=== PATIENT | female | born 1950 | race Caucasian/White ===

== ENCOUNTER → 2016-09-03 | Outpatient (CLI) | payer MEDICARE ==
[~2016-09-03] MED LIST: /ADVA50050 INH; /ALBU4TAB INH; /IPRA3SP INH; ATOR1TAB21 PO; AUGM875T27 PO; BREO1INH INH; CELE40TA PO; CIPR500T89 PO; CITA20TA2 PO; CLAR500T PO; COLA100C PO; COZA100T2 PO; DORZ2SOL5 OU; DOXY150C PO; FLAG500T PO; FURO20TA2 PO; JANU100T PO; LATA0.00 OU; LATA5OPD OD; LEVA500T PO; LEVO137T PO; LEVO500T PO; LOSA100T36 PO; METF1000 PO; NYAM10003 TOP; NYST1000 SS; NYST50SS PO; PARO40TA PO; PERCOCET PO; PRAV80TA2 PO; PRED10TA PO; PRED1TAB32 PO; PRED5SOL2 PO; PRED5TA PO; SYNT137T7 PO; SYNT175T2 PO; TUMS500C PO; TYLE650T30 PO; VALS1TAB46 PO; XALA0.002 OU; ZOFR4TAB3 PO; [UNRECOGNIZED DRUG - CODE]
[2016-09-03 08:52] LABS: CREATININE FOR GFR 1.08 MG/DL (0.55-1.02); GLOMERULAR FILTRATION RATE 54.5 (>45)
== END ==
LOC: M LAB 08:09
PROVIDERS: ATTEND Internal Medicine Pulmonary Disease
DX: R91.8 Other nonspecific abnormal finding of lung field (principal)

== ENCOUNTER → 2016-09-12 | Outpatient (CLI) | payer MEDICARE ==
[~2016-09-12] MED LIST changes: +ISOVUE-370 76% 100ML VIAL (Q9967) As Ordered ONE
--- NOTE | 2016-09-12 17:02 | REP ---
Clinical: History of cryptogenic organizing pneumonia for follow up. Technique: Axial contrast enhanced images from the thoracic inlet to the upper abdomen using 100 ml Isovue 370 intravenous contrast material with coronal and sagittal re-formations. Comparison: 05/10/2016. Findings: Biapical (left greater than right) and scattered basilar scarring is again appreciated along with mild chronic bronchiectasis. Previously noted multi focal areas of nodular consolidation with surrounding ground-glass opacities and small left pleural effusion have near completely resolved with only minimal small scattered nodular densities appreciated predominantly noted within the left lower lobe region. All remaining nodules are decreased in size when compared to prior examination and there is no evidence for new, acute process. No significant adenopathy is appreciated. Heart/pericardium and thoracic aorta are normal. Surrounding musculoskeletal structures are intact. Limited evaluation of the upper abdomen demonstrates normal bilateral adrenal glands. Impression: Resolving multifocal pneumonia compatible with history of cryptogenic organizing pneumonia. Mild scattered residual changes as described above and no evidence for new, acute process. Continued follow-up at 3-6 months may be warranted. Signed by Dennis Biggs MD 09/12/2016 04:53 P
== END ==
LOC: M RAD 16:00
PROVIDERS: ATTEND Internal Medicine Pulmonary Disease
DX: J84.116 Cryptogenic organizing pneumonia (principal)
CPT/HCPCS: 71260; Q9967

== ENCOUNTER → 2016-10-31 | Outpatient (REF) | payer MEDICARE ==
[~2016-10-31] MED LIST changes: -ISOVUE-370 76% 100ML VIAL (Q9967) As Ordered ONE
== END ==
LOC: M LAB REF 14:40
PROVIDERS: ATTEND Internal Medicine
DX: R07.9 Chest pain, unspecified (principal)

== ENCOUNTER → 2017-01-07 | Outpatient (REF) | payer MEDICARE ==
[~2017-01-07] MED LIST changes: -COLA100C PO; +COLA100C3 PO; -PARO40TA PO; +PARO40TA2 PO
== END ==
LOC: M LAB REF 16:21
PROVIDERS: ATTEND Internal Medicine
DX: R07.9 Chest pain, unspecified (principal)

== ENCOUNTER → 2017-02-03 | Outpatient (REF) | payer MEDICARE | LOC: M LAB REF 16:55 | PROVIDERS: ATTEND Internal Medicine | DX: R10.9 Unspecified abdominal pain (principal); R30.0 Dysuria ==

== ENCOUNTER → 2017-09-19 | Outpatient (CLI) | payer MEDICARE ==
[2017-09-19 09:00] LABS: CREATININE FOR GFR 0.99 MG/DL (0.55-1.02); GLOMERULAR FILTRATION RATE > 60.0 (>45)
[2017-09-19 09:00] LABS: BLOOD UREA NITROGEN 21 MG/DL (7-18)
== END ==
LOC: M LAB 07:51
DX: J84.116 Cryptogenic organizing pneumonia (principal)
CPT/HCPCS: 82565

== ENCOUNTER → 2017-09-22 | Outpatient (CLI) | payer MEDICARE ==
[~2017-09-22] MED LIST changes: -/ADVA50050 INH; -/ALBU4TAB INH; -/IPRA3SP INH; -ATOR1TAB21 PO; -AUGM875T27 PO; -BREO1INH INH; -CELE40TA PO; -CIPR500T89 PO; -CITA20TA2 PO; -CLAR500T PO; -COLA100C3 PO; -COZA100T2 PO; -DORZ2SOL5 OU; -DOXY150C PO; -FLAG500T PO; -FURO20TA2 PO; +ISOVUE-370 76% 100ML VIAL (Q9967) As Ordered; -JANU100T PO; -LATA0.00 OU; -LATA5OPD OD; -LEVA500T PO; -LEVO137T PO; -LEVO500T PO; -LOSA100T36 PO; -METF1000 PO; -NYAM10003 TOP; -NYST1000 SS; -NYST50SS PO; -PARO40TA2 PO; -PERCOCET PO; -PRAV80TA2 PO; -PRED10TA PO; -PRED1TAB32 PO; -PRED5SOL2 PO; -PRED5TA PO; -SYNT137T7 PO; -SYNT175T2 PO; -TUMS500C PO; -TYLE650T30 PO; -VALS1TAB46 PO; -XALA0.002 OU; -ZOFR4TAB3 PO; -[UNRECOGNIZED DRUG - CODE]
== END ==
LOC: M RAD 07:57
DX: J84.116 Cryptogenic organizing pneumonia (principal)
CPT/HCPCS: Q9967

== ENCOUNTER → 2018-04-21 | Outpatient (CLI) | payer MEDICARE | LOC: M CARPUL 07:30 | DX: J84.116 Cryptogenic organizing pneumonia (principal) | CPT/HCPCS: 94060 ==

== ENCOUNTER → 2018-07-10 | Outpatient (CLI) | payer MEDICARE | LOC: M RAD 11:01 | DX: R19.00 Intra-abdominal and pelvic swelling, mass and lump, unspecified site (principal) | CPT/HCPCS: 76856 ==

== ENCOUNTER → 2018-09-17 | Outpatient (CLI) | payer MEDICARE ==
[~2018-09-17] MED LIST changes: +/ADVA50050 INH; +/ALBU4TAB INH; +/IPRA3SP INH; +ATOR1TAB21 PO; +AUGM875T27 PO; +BREO1INH INH; +CELE40TA PO; +CIPR-249 PO; +CIPR500T89 PO; +CITA20TA2 PO; +CLAR500T PO; +COLA100C5 PO; +COZA100T2 PO; +DORZ2SOL5 OU; +DOXY150C PO; +FLAG500T PO; +FURO20TA2 PO; -ISOVUE-370 76% 100ML VIAL (Q9967) As Ordered; +JANU100T PO; +LATA0.00 OU; +LATA5OPD OD; +LEVA1TAB2 PO; +LEVO137T PO; +LEVO500T PO; +LOSA100T36 PO; +METF10004 PO; +NYAM10003 TOP; +NYST1000 SS; +NYST50SS PO; +PARO40TA2 PO; +PERCOCET PO; +PRAV80TA2 PO; +PRED10TA PO; +PRED1TAB32 PO; +PRED5SOL2 PO; +PRED5TA PO; +SYNT137T7 PO; +SYNT175T2 PO; +TUMS500C PO; +TYLE650T30 PO; +VALS1TAB46 PO; +XALA0.007 OU; +ZOFR4TAB14 PO; +[UNRECOGNIZED DRUG - CODE]
--- NOTE | 2018-09-17 09:19 | REP ---
Chest two views HISTORY: Pneumonia Comparison: 04/12/2016 Parenchymal densities are present in the right lower lobe consistent with atelectasis or infiltrate. Linear densities are present in the left upper lobe consistent with scar. The cardiac silhouette is enlarged. The pulmonary vasculature is normal in appearance. The bony structure is intact. IMPRESSION: 1. Right lower lobe atelectasis. Infiltrate. 2. Left upper lobe scar. 2. Cardiomegaly. Electronically Signed by Lamonte Le MD 09/17/2018 09:11 A
== END ==
LOC: M RAD 08:45
PROVIDERS: ATTEND Internal Medicine Pulmonary Disease
DX: J84.116 Cryptogenic organizing pneumonia (principal); J98.11 Atelectasis; I51.7 Cardiomegaly; J98.4 Other disorders of lung

== ENCOUNTER → 2018-10-07 | Outpatient (REF) | payer MEDICARE ==
[2018-10-07 14:47] LABS: INFLUENZA A AMPLIFICATION NEGATIVE (NEGATIVE); INFLUENZA B AMPLIFICATION NEGATIVE (NEGATIVE)
== END ==
LOC: M LAB REF 13:21
PROVIDERS: ATTEND Nurse Practitioner Family
DX: R05 Cough (principal)

== ENCOUNTER → 2018-12-31 | Outpatient (CLI) | payer MEDICARE ==
[~2018-12-31] MED LIST changes: -/ADVA50050 INH; -/ALBU4TAB INH; -/IPRA3SP INH; +ADVA1AER2 INH; +ALBU1TAB2 INH; +AMLO10TA5 PO; +ATRO1SOL13 INH; +BETI1SOL OU; +BRIM0.2S13 OU; +COMB0.2S OP; +ESCI20TA PO; +IBUP200C25 PO; +LATA0.009 OD; -LATA5OPD OD; +LEVO125T4 PO; +LOSA100T50 PO; +METF-723 PO; +MULT1CHW29 PO; +ONDA4TAB5 PO; +ONDA4TAB6 PO; +OXYC1TAB23 PO; +PRED-351 PO; -PRED10TA PO; +RANI150T14 PO; -VALS1TAB46 PO; +VALS1TAB66 PO
--- NOTE | 2019-01-04 16:49 | SLEEPCENT ---
DATE OF PROCEDURE: 12/31/2018 ORDERED BY: Dr. Andrew Gomez Nocturnal polysomnography was performed for evaluation of sleep physiology in this patient with a history of excessive somnolence and nonrestorative sleep who has comorbidities of cryptogenic organizing pneumonia, asthma, type 2 diabetes and hypertension. 7 hours and 53 minutes of data were reviewed. There were 343 minutes of sleep identified. Sleep latency was prolonged at 29.5 minutes. Rapid eye movement (REM) latency was prolonged at 220 minutes. Sleep architecture showed some poor progression early in the study. There was one period of REM. Overall sleep efficiency was 73.2%. The electrocardiogram showed sinus rhythm with respiratory variability. Average heart rate 70 beats per minute. EEG showed normal waveforms for awake and sleep. There were 56 respiratory events identified of 10 seconds in duration or greater for an apnea-hypopnea index of 9.8. The events were primarily obstructive, not exclusive to sleep stage nor body posture. Arousals from respiratory events occurred 2.6 times per hour and oxygen desaturations were seen into the low 80s. There was some activity in the limb leads as well with a limb movement arousal index of 9.1. IMPRESSION: 1. Obstructive sleep apnea syndrome (G47.33). Apnea-hypopnea index 9.8. 2. Possible periodic limb movement disorder (G47.61). Limb movement arousal index 9.1. RECOMMENDATIONS: Given the frequency of respiratory events and oxygen desaturations seen, referral back to the sleep disorder center for pressure therapy is recommended. In the interim, alcohol and sedative avoidance should be practiced and caution exercised during the operation of motor vehicles.
== END ==
LOC: M SLEEP 19:27
PROVIDERS: ATTEND Internal Medicine Pulmonary Disease
DX: G47.33 Obstructive sleep apnea (adult) (pediatric) (principal); G47.61 Periodic limb movement disorder

== ENCOUNTER 2019-01-01 05:49 | Emergency (ER) | payer MEDICARE ==
[~2019-01-01] VITALS: Ht 160 cm; Wt 118.2 kg
[~2019-01-01 05:49] MED LIST changes: -AMLO10TA5 PO; -BETI1SOL OU; -BRIM0.2S13 OU; -COMB0.2S OP; -ESCI20TA PO; -IBUP200C25 PO; -LEVO125T4 PO; -LOSA100T50 PO; -METF-723 PO; -MULT1CHW29 PO; -ONDA4TAB5 PO; -ONDA4TAB6 PO; -OXYC1TAB23 PO; -RANI150T14 PO
[2019-01-01 07:29] LABS: HEMATOCRIT 37.6 % (36.0-47.0); HEMOGLOBIN 11.8 g/dl (12.0-15.5); MEAN CORPUSCULAR HEMOGLOBIN 28.4 pg (27.0-33.0); MEAN CORPUSCULAR HGB CONC 31.4 g/dl (32.0-36.5); MEAN CORPUSCULAR VOLUME 90.4 fl (80.0-96.0); PLATELET COUNT, AUTOMATED 248 10^3/uL (150-450); RED BLOOD COUNT 4.16 10^6/uL (4.00-5.40); WHITE BLOOD COUNT 9.2 10^3/uL (4.0-10.0)
[2019-01-01] MEDS ORDERED: fentaNYL 100 MCG/2 ML INJECTION (J3010) IV ONE (07:30)
[2019-01-01] MEDS ORDERED: ADACEL/BOOSTRIX VACCINE (DIPHTH/PERTUSS/ACELL/TETANUS)0.5ML SYR (90715) IM ONE (07:30)
[2019-01-01] MEDS ORDERED: DERMABOND TOPICAL SKIN ADHESIVE TOP ONE (07:30)
[2019-01-01] MEDS ORDERED: METOCLOPRAMIDE INJ 10MG/2ML VIAL (J2765) IV ONE (07:30)
[2019-01-01] MEDS ORDERED: ESCI20TA PO (07:33)
[2019-01-01] MEDS ORDERED: CLAR500T PO (07:33)
[2019-01-01] MEDS ORDERED: LOSA100T50 PO (07:33)
[2019-01-01] MEDS ORDERED: METF-723 PO (07:33)
[2019-01-01] MEDS ORDERED: RANI150T14 PO (07:33)
[2019-01-01] MEDS ORDERED: BRIM0.2S13 OU (07:33)
[2019-01-01] MEDS ORDERED: BETI1SOL OU (07:33)
[2019-01-01] MEDS ORDERED: LEVO125T4 PO (07:34)
[2019-01-01 07:44] LABS: BLOOD UREA NITROGEN 14 MG/DL (7-18); CALCIUM LEVEL 8.1 MG/DL (8.8-10.2); CARBON DIOXIDE LEVEL 29 MEQ/L (21-32); CHLORIDE LEVEL 112 MEQ/L (98-107); CREATININE FOR GFR 0.84 MG/DL (0.55-1.30); GLOMERULAR FILTRATION RATE > 60.0 (>45); GLUCOSE, FASTING 114 MG/DL (70-100); SODIUM LEVEL 146 MEQ/L (136-145)
[2019-01-01] MEDS ORDERED: NS 1,000 ML IV ONE (08:45)
[2019-01-01] MEDS ORDERED: ONDANSETRON 4MG/2ML VIAL (J2405) IV ONE (09:00)
--- NOTE | 2019-01-01 09:02 | REP ---
LEFT FOOT, OBLIQUE VIEWS: Two oblique views of the left foot are performed. There is no evidence of acute fracture, dislocation or intrinsic bone disease. Electronically Signed by Hunter Rothman MD 01/01/2019 12:54 P
--- NOTE | 2019-01-01 09:03 | REP ---
LEFT FOOT, AP AND LATERAL, TWO VIEWS: There is no evidence of an acute fracture, dislocation or intrinsic bone disease. IMPRESSION: No fracture or dislocation. Electronically Signed by Hunter Rothman MD 01/01/2019 12:54 P
--- NOTE | 2019-01-01 09:03 | REP ---
LEFT ANKLE, FOUR VIEWS: Four views of the left ankle are performed. There is a minimally displaced fracture of the medial malleolus. No other acute fracture or dislocation is seen. Fracture extends into the tibiotalar joint. IMPRESSION: Minimally displaced fracture medial malleolus. Electronically Signed by Hunter Rothman MD 01/01/2019 12:55 P
--- NOTE | 2019-01-01 09:04 | REP ---
LEFT LOWER LEG, AP AND LATERAL: AP and lateral views of the left lower leg performed. There is a minimally displaced fracture of the medial malleolus extending into the tibiotalar joint. Proximally the fibula is fractured, with two adjacent fractures 2.5 cm apart. There is mild lateral angulation of the intervening fragment. IMPRESSION: Fracture proximal fibula and medial malleolus as discussed above. Electronically Signed by Hunter Rothman MD 01/01/2019 12:56 P
[2019-01-01] MEDS ORDERED: NORCO, ANEXSIA 5/325MG TABLET (HYDROcodone/ACETAMINOPHEN) PO ONE (09:45)
[2019-01-01 10:03] VITALS: BP 149/69
[2019-01-04] MEDS ORDERED: OXYC1TAB23 PO (10:12)
[2019-01-11] MEDS ORDERED: COMB0.2S OP (12:19)
[2019-01-11] MEDS ORDERED: LOSA100T50 PO (15:05)
== END 2019-01-01 10:05 | disposition home or self-care (01) ==
LOC: M ED 05:49
DX: S82.52XA Displaced fracture of medial malleolus of left tibia, initial encounter for closed fracture (principal); S82.832A Other fracture of upper and lower end of left fibula, initial encounter for closed fracture; S51.012A Laceration without foreign body of left elbow, initial encounter; W01.0XXA Fall on same level from slipping, tripping and stumbling without subsequent striking against object, initial encounter; Y92.231 Patient bathroom in hospital as the place of occurrence of the external cause; I10 Essential (primary) hypertension; E11.9 Type 2 diabetes mellitus without complications; E03.9 Hypothyroidism, unspecified; H40.9 Unspecified glaucoma; E78.5 Hyperlipidemia, unspecified; Z87.09 Personal history of other diseases of the respiratory system; Z88.5 Allergy status to narcotic agent; Z88.8 Allergy status to other drugs, medicaments and biological substances; Z79.899 Other long term (current) drug therapy; Z79.2 Long term (current) use of antibiotics; Z79.84 Long term (current) use of oral hypoglycemic drugs; G47.33 Obstructive sleep apnea (adult) (pediatric)
CPT/HCPCS: 12001; 29515; 36415; 73590; 73610; 73630; 80048; 85027; 90471; 90715; 96374; 96375; 99285; J2405; J2765; J3010

== ENCOUNTER 2019-01-04 15:52 | Inpatient (IN) | payer MEDICARE ==
[~2019-01-04] VITALS: Ht 162.6 cm; Wt 126.9 kg
[~2019-01-04 15:52] MED LIST changes: +BETI1SOL OU; +BRIM0.2S13 OU; +ESCI20TA PO; +LEVO125T4 PO; +LOSA100T50 PO; +METF-723 PO; +OXYC1TAB23 PO; +RANI150T14 PO
[2019-01-04] MEDS ORDERED: NS 1,000 ML IV SCH (17:00)
[2019-01-04 17:42] LABS: BASO % 0.2 % (0.0-1.0); EOS # 0.7 10^3/uL (0.0-0.50); EOS % 7.2 % (0.0-3.0); HEMATOCRIT 37.2 % (36.0-47.0); HEMOGLOBIN 11.3 g/dl (12.0-15.5); LYMPH # 1.8 10^3/uL (1.5-4.5); LYMPH % 19.6 % (24.0-44.0); MEAN CORPUSCULAR HEMOGLOBIN 28.3 pg (27.0-33.0); MEAN CORPUSCULAR HGB CONC 30.4 g/dl (32.0-36.5); MONO # 0.8 10^3/uL (0.0-0.8); MONO % 8.8 % (0.0-5.0); NEUTROPHILS # 5.9 10^3/uL (1.8-7.7); NEUTROPHILS % 63.8 % (36.0-66.0); PLATELET COUNT, AUTOMATED 259 10^3/uL (150-450); WHITE BLOOD COUNT 9.2 10^3/uL (4.0-10.0)
[2019-01-04 18:03] LABS: CALCIUM LEVEL 8.3 MG/DL (8.8-10.2); CREATININE FOR GFR 2.41 MG/DL (0.55-1.30); GLOMERULAR FILTRATION RATE 21.4 (>45); POTASSIUM SERUM 4.6 MEQ/L (3.5-5.1)
[2019-01-04] MEDS ORDERED: ONDA4TAB6 PO (18:40)
[2019-01-04] MEDS ORDERED: IBUP200C25 PO (18:42)
[2019-01-04] MEDS ORDERED: ONDA4TAB5 PO (18:42)
[2019-01-04] MEDS ORDERED: MULT1CHW29 PO (18:42)
[2019-01-04] MEDS ORDERED: ACETAMINOPHEN TAB 650MG DOSE (2X325MG) PO PRN (20:00)
--- NOTE | 2019-01-04 20:23 | HPEPDOC ---
General Date of Admission Primary Care Physician: DARLEEN AMADO DO Chief Complaint The patient is a 68-year-old female admitted with a reason for visit of Injury. Source: Patient, Family Associated Symptoms: Denies Symptoms, Other (ankle and leg pain due to mechanical fall 3 days ago) History of Present Illness Pt is a 68 yo female with PMH of COPD, REAL, diverticullitis and diverticulosis, histoplasmosis, HTN, and type 2 DM presented to [facility] as she was told she has JOSE as she had her blood work today. She had a mechanical fall on 01/01/19 and had fr actured left fibula and medial malleolus, reported that she has been taking Ibuprofen for the pain. REported 5/10 sharp pain in left anterior tibial region and left medial malleolus. Pt also reported she has several emesis episodes for 2 days after the mechanical fall with decreased appetite, and the nausea/vomiting has resolved today; stating that she has good oral food and fluid intake today. She was evaluated at orthopedic office after the mechanical fall and had her left leg and ankle stablized. She was originally scheduled for orthopedic procedure on 01/05/19 morning, and as she was having her blood work done she was told she has JOSE and was told to come to the ER. Home Medications Scheduled Atorvastatin Calcium (Atorvastatin Calcium) 20 Mg Tab, 20 MG PO QHS, (Reported) Brimonidine Tartrate (Brimonidine Tartrate) 0.2% 5ML Drops, 1 DROP OU BID, (Reported) Clarithromycin (Clarithromycin) 500 Mg Tablet, 500 MG PO BID, (Reported) Escitalopram Oxalate (Escitalopram Oxalate) 20 Mg Tablet, 20 MG PO DAILY, (Reported) Fluticasone/Vilanterol (Breo Ellipta 100-25 Mcg INH) 1 Inh Inh, 1 PUFF INH QHS, (Reported) Latanoprost (Xalatan) 0.005 % Kaila, 1 DROP OU QHS, (Reported) Levothyroxine Sodium (Levothyroxine Sodium) 125 Mcg Tablet, 125 MCG PO DAILY, (Reported) Losartan Potassium (Losartan Potassium) 100 Mg Tablet, 100 MG PO QHS, (Reported) Metformin HCl (Metformin HCl ER) 500 Mg Tab.er.24h, 1,000 MG PO BID, (Reported) Multivit-Minerals/Folic Acid (Women's Multivitamin Gummies) 200 Mcg Tab.chew, 2 CHW PO DAILY, (Reported) Ranitidine HCl (Ranitidine HCl) 150 Mg Tablet, 1 TAB PO BID, (Reported) Sitagliptin Phosphate (Januvia) 100 Mg Tab, 100 MG PO DAILY, (Reported) Timolol (Betimol) 0.25% 5ML Drops, 1 DROP OU BID, (Reported) Scheduled PRN Furosemide (Furosemide) 20 Mg Tab, 20 MG PO DAILY PRN for LEG SWELLING, (Reported) Ibuprofen (Ibuprofen) 200 Mg Capsule, 400 MG PO Q6H PRN for PAIN, (Reported) Ondansetron HCl (Ondansetron HCl) 4 Mg Tablet, 4 MG PO Q6H PRN for NAUSEA OR VOMITING, (Reported) Oxycodone HCl/Acetaminophen (Oxycodone-Acetaminophen 5-325) 1 Each Tablet, 1 TAB PO Q6-8HP PRN for PAIN, (Reported) Allergies Coded Allergies: lisinopril (Verified Allergy, Severe, RASH/DIFFICULTY BREATHING, 01/01/19) morphine (Verified Adverse Reaction, Unknown, NAUSEA/VOMITING, 01/01/19) Past Medical History Medical History 1. COPD. 2. Morbid obesity, BMI of 43. 3. Obstructive sleep apnea. 4. History of diverticulitis treated as an outpatient. 5. Diverticulosis per colonoscopy August 2015. 6. History of histoplasmosis in 2006. 7. Herpes zoster. 8. Hypertension. 9. Hyperlipidemia. 10. Type 2 diabetes, non-insulin dependent. 11. History of glaucoma. 12. Depression and anxiety. 13. Left sided fibula and medial malleolus fracture due to mechanical fall 14. Multiple lung lesions, pathology report interstitial lung disease and cryptogenic organizing pneumonia. 15. Renal insufficiency, transient and resolved. 16. Chronic anemia with normal indices. 17. Hypothyroidism. Surgical History 1. Tubal ligation. 2. Bronchoscopy 3. Colonoscopy performed in 2014. Social History * Smoker: Denies retired, previously worked in a factory used for sewing [employer] A-FIB History Current/History of A-Fib/PAF?: No Review of Systems Constitutional: Denies: Chills, Fever Pulmonary: Denies: Dyspnea, Cough Cardiovascular: Denies: Chest Pain, Palpitations Gastrointestinal: Reports: Melena; Denies: Nausea, Vomiting, Abdominal Pain, Diarrhea Genitourinary: Denies: Dysuria, Frequency, Incontinence, Hematuria, Retention Neurological: Reports: Other Symptoms (marie tingling or loss of sensation); Denies: Numbness Physical Examination General Exam: Positive: Alert, Cooperative, No Acute Distress Eye Exam: Positive: Conjunctiva & lids normal; Negative: Ptosis ENT Exam: Positive: Atraumatic Neck Exam: Positive: Supple Chest Exam: Positive: Clear to auscultation, Normal air movement; Negative: Rales, Rhonchi, Wheezing, Diminished Heart Exam: Positive: Rate Normal, Regular Rhythm, Normal S1, Normal S2; Negative: Murmurs Extremity Exam: Positive: Normal pulses (b/l radial), Other (capillary refill 3-4 sec. left leg braced from knee down); Negative: Edema Neuro Exam: Positive: Normal Speech Psych Exam: Positive: Mental status NL, Mood NL, Memory Intact, Oriented x 3 Vital Signs Vital Signs Date Time Temp Pulse Resp B/P (MAP) Pulse Ox O2 Delivery O2 Flow Rate FiO2 01/04/19 18:15 78 18 169/76 (107) 96 Room Air 01/04/19 16:12 98.6 2.0 Laboratory Data Labs 24H Laboratory Tests 2 01/04/19 17:09: Immature Granulocyte % (Auto) 0.4, White Blood Count 9.2, Red Blood Count 4.00, Hemoglobin 11.3L, Hematocrit 37.2, Mean Corpuscular Volume 93.0, Mean Corpuscular Hemoglobin 28.3, Mean Corpuscular Hemoglobin Concent 30.4L, Red Cell Distribution Width 14.0, Platelet Count 259, Neutrophils (%) (Auto) 63.8, Lymphocytes (%) (Auto) 19.6L, Monocytes (%) (Auto) 8.8H, Eosinophils (%) (Auto) 7.2H, Basophils (%) (Auto) 0.2, Neutrophils # (Auto) 5.9, Lymphocytes # (Auto) 1.8, Monocytes # (Auto) 0.8, Eosinophils # (Auto) 0.7H, Basophils # (Auto) 0.0, Nucleated Red Blood Cells % (auto) 0.0, Urine Color YELLOW, Urine Appearance CLEAR, Urine pH 5.0, Urine Specific [place] 1.012, Urine Protein NEGATIVE, Urine Glucose (UA) NEGATIVE, Urine Ketones NEGATIVE, Urine Blood NEGATIVE, Urine Nitrite NEGATIVE, Urine Bilirubin NEGATIVE, Urine Urobilinogen 0.2, Urine Leukocyte Esterase NEGATIVE, Urine WBC (Auto) 3, Urine RBC (Auto) 0, Urine Hyaline Casts (Auto) 0, Urine Bacteria (Auto) NEGATIVE, Urine Squamous Epithelial Cells 1, Urine Sperm (Auto) , Anion Gap 6L, Glomerular Filtration Rate 21.4L, Blood Urea Nitrogen 42H, Creatinine 2.41H, Sodium Level 145, Potassium Level 4.6, Chloride Level 112H, Carbon Dioxide Level 27, Calcium Level 8.3L CBC/BMP Laboratory Tests 01/04/19 17:09 Red Blood Count 4.00, Mean Corpuscular Volume 93.0, Mean Corpuscular Hemoglobin 28.3, Mean Corpuscular Hemoglobin Concent 30.4 L, Red Cell Distribution Width 14.0, Neutrophils (%) (Auto) 63.8, Lymphocytes (%) (Auto) 19.6 L, Monocytes (%) (Auto) 8.8 H, Eosinophils (%) (Auto) 7.2 H, Basophils (%) (Auto) 0.2, Neutrophils # (Auto) 5.9, Lymphocytes # (Auto) 1.8, Monocytes # (Auto) 0.8, Eosinophils # (Auto) 0.7 H, Basophils # (Auto) 0.0, Calcium Level 8.3 L Problems (1) Vomiting Problem Text: 2 days of nausea and vomiting with decreased appetite which had resolved prior to admission as of 01/04/19 morning. Likely d/t gastroenteritis. Order abdomen/pelvis without PO contrast to r/o other etiologies/structural abnormalities. Cont to monitor the pt. Cont home med Zofran PRN (2) Acute kidney injury Status: Acute Problem Text: JOSE. Creatinine at 2.41, elevated compared to baseline. GFR also decreased compared to baseline. Pt had decreased oral intake with nausea, vomiting, and decreased appetite for 2 days after the mechanical fall; reported no nausea/vomiting now and having good oral intake today. Pt states she has no symptoms. Avoid nephrotoxic meds. IV LR and f/u with BMP tmrw. bonilla catheter for strict I&O. (3) Fracture of proximal end of fibula Status: Acute Problem Text: 2/2 mechanical fall. Reported 5/10 sharp pain in anterior tibial region right below the left knee. Pt originally scheduled for orthopedic surgery tmrw. Discussed with on-call orthopedic surgeon, and pt's outpatient orthopedic surgeon Dr. Cabrera will decide tomorrow if pt will receive orthopedic procedure. Tylenol and oxycodone/acetaminophen. (4) Fractured medial malleolus Status: Acute Problem Text: 2/2 mechanical fall. Reported 5/10 sharp pain in left medial malleolus region.Discussed with on-call orthopedic surgeon, and tmrw pt's outpatient orthopedic surgeon Dr. Cabrera will decide if pt will receive orthopedic procedure. Tylenol and oxycodone/acetaminophen PRN pain. (5) COPD (chronic obstructive pulmonary disease) Onset Date: 03/05/2014 Status: Acute Problem Text: On salmeterol/fluticasone as scheduled. Albuterol PRN. Cont to monitor the pt; vital signs as scheduled (6) Diabetes mellitus type 2 in obese Problem Text: Cont home DM meds Januvia; hold metformin as pt has JOSE. FSBS AC&HS, sliding scale and hypoglycemia protocol. (7) Hypertension Problem Text: hold home med furosemide and losartan as pt has JOSE. Cont vital signs as scheduled and cont to monitor the pt Plan / VTE VTE Prophylaxis Ordered?: Yes (SC lovenox) BERTA STRICKLAND DO January 04, 2019 20:23
[2019-01-04] MEDS ORDERED: ONDANSETRON 4 MG TAB (S0181) PO PRN (20:30)
[2019-01-04] MEDS: BRIMONIDINE 0.15% OPHTH SOLN 5 ML OU SCH (21:00)
[2019-01-04] MEDS ORDERED: GLUCOSE 4 GM CHEW TABLET PO PRN (21:00)
[2019-01-04] MEDS ORDERED: DEXTROSE 50% 50 ML SYRINGE IV PRN (21:00)
[2019-01-04] MEDS ORDERED: FLUTICASONE HFA 110 MCG 12 GM INHALER (FLOVENT) INH SCH (21:00)
[2019-01-04] MEDS ORDERED: GLUCAGON FOR INJ 1 MG VIAL (J1610) SC PRN (21:00)
[2019-01-04] MEDS ORDERED: METAMUCIL (PSYLLIUM) PACKET PO PRN (21:30)
[2019-01-04] MEDS: ENOXAPARIN 30 MG/0.3 ML SYR (J1650) SC SCH (21:51)
[2019-01-04] MEDS: LR 1,000 ML IV SCH (21:52)
--- NOTE | 2019-01-04 22:00 | REPVR ---
EXAM: CT Abdomen and Pelvis Without Contrast EXAM DATE/TIME: 01/04/2019 8:57 PM CLINICAL HISTORY: 68 years old, female; Abdominal pain; Generalized; Additional info: Nausea and vomiting TECHNIQUE: Imaging protocol: Axial computed tomography images of the abdomen and pelvis without contrast. Coronal and sagittal reformatted images were created and reviewed. Radiation optimization: All CT scans at this facility use at least one of these dose optimization techniques: automated exposure control; mA and/or kV adjustment per patient size (includes targeted exams where dose is matched to clinical indication); or iterative reconstruction. COMPARISON: CT ABD PELVIS W/O CONTRAST 05/07/2015 6:31 PM FINDINGS: Lungs: Patchy consolidation noted at the right lung base. "Tree in bud" pattern inflammation noted in the right middle lobe. Discoid atelectasis at both bases. 6 mm groundglass nodule in the right middle lobe not seen previously. 4 mm pleural-based nodule at the right lung base anteriorly. Granuloma in the right lower lobe. ABDOMEN: Liver: The liver is low in density. Gallbladder and bile ducts: Normal. No calcified stones. No ductal dilation. Pancreas: Normal. No ductal dilation. Spleen: Normal. No splenomegaly. Adrenals: Normal. No mass. Kidneys and ureters: 7 mm low-density lesion projecting off the upper pole of the left kidney. No hydronephrosis. Stomach and bowel: Sigmoid colonic diverticula. Appendix: No evidence of appendicitis. PELVIS: Bladder: Unremarkable as visualized. Reproductive: Unremarkable as visualized. ABDOMEN and PELVIS: Intraperitoneal space: Normal. No free air. No significant fluid collection. Bones/joints: Degenerative changes noted at the lumbosacral junction with endplate sclerosis.. Grade 1 mahogany-listhesis to the left of midline at L5-S1 with 3.3 mm of retrolisthesis of S1 with respect to L5. Soft tissues: Unremarkable. Vasculature: Normal. No abdominal aortic aneurysm. Lymph nodes: A 9 mm soft tissue mass adjacent to the distal esophagus may represent a lymph node or small esophageal diverticulum. Unchanged from previous. IMPRESSION: 1. No acute findings in the abdomen and pelvis. 2. Patchy atelectasis/consolidation at both lung bases. Patchy infiltrates noted previously have resolved and findings in today's examination appear new. 3. Pulmonary nodules which appear new.Recommend CT at 3-6 months. If stable, then consider CT at 2 years and 4 years. (Anuj et al., Fleischner Society, 2017) 4. Sigmoid colonic diverticula. No diverticulitis. 5. 7 mm low density lesion projecting off the upper pole of the left kidney. This probably not significantly changed from previous. 6. 9 mm paraesophageal lymph node versus diverticulum. No change 7. Hepatic steatosis Electronically signed by: Jovanna Guerrero On 01/04/2019 21:59:58 PM
[2019-01-04] MEDS: PERCOCET 5MG/325MG TAB PO PRN (22:13)
[2019-01-04] MEDS: HumaLOG INSULIN (NovoLOG) PER UNIT SC SCH (22:28)
[2019-01-04 23:00] VITALS: BP 200/73
[2019-01-05] MEDS: raNITIdine SYRUP 150 MG/10 ML UDC PO SCH ×3 (00:29→21:32)
[2019-01-05] MEDS: ATORVASTATIN 20 MG TAB PO SCH ×2 (00:29→21:31)
[2019-01-05] MEDS: TIMOLOL MALEATE 0.25% OPHTH SOLN 5 ML OU SCH ×3 (00:29→21:33)
[2019-01-05] MEDS: LATANOPROST 0.005% OPHTH SOLN 2.5 ML OU SCH ×2 (00:29→21:33)
[2019-01-05] MEDS: ADVAIR HFA 115/21MCG INHALER INH SCH ×2 (00:34→20:13)
[2019-01-05] MEDS: LR 1,000 ML IV SCH ×4 (04:57→21:30)
[2019-01-05 06:00] VITALS: BP 142/86
[2019-01-05] MEDS: PERCOCET 5MG/325MG TAB PO PRN ×3 (06:15→23:53)
[2019-01-05] MEDS: LEVOTHYROXINE 125MCG TABLET (0.125MG) PO SCH (06:15)
[2019-01-05] MEDS: HumaLOG INSULIN (NovoLOG) PER UNIT SC SCH ×4 (07:30→21:00)
--- NOTE | 2019-01-05 08:06 | IPNPDOC ---
Subjective Date Seen The patient was seen on 01/05/19. Subjective Chief Complaint/HPI Acute Kidney Injury, Fracture of proximal end of Fibula Events since last encounter Patient was interviewed and examined in her hospital room this morning. She denies any events over night. She reports having a restful night's sleep. She continues to report of L-sided shoulder and elbow soreness 2/2 to fall, though she feels she is receiving adequate pain medication at would not like anymore. The events leading to her admission were reviewed. Of note, patient reports that she was taking 400 mg Ibuprofen 6 times per day which, in addition to her dehydration and n/v 2/2 to gastroenteritis, could be responsible for the patient's newly found JOSE. Plan to review renal function this morning was reviewed with the patient who was in agreement with the plan. General: Reports: Normal Appetite; Denies: Fatigue, Malaise Constitutional: Denies: Chills, Fever, Night Sweats, Weakness Eyes: Denies: Vision change ENT: Denies: Head Aches, Other Symptoms Skin: Denies: Rash, Lesions Pulmonary: Denies: Dyspnea, Cough Cardiovascular: Reports: Other Symptoms (Newly diagnosed REAL); Denies: Chest Pain, Palpitations Gastrointestinal: Denies: Nausea, Vomiting, Abdominal Pain, Diarrhea, Constipation Genitourinary: Denies: Dysuria Hematologic: Denies: Bruising, Bleeding Excessively Musculoskeletal: Reports: Shoulder Pain (L shoulder bruise/pain secondary to recent fall), Arm Pain (L elbow bruise/pain 2/2 to recent fall), Leg Pain (L ankle pain 2/2 to distal fibular fracture) Neurological: Denies: Weakness, Numbness Psych: Reports: Mood Normal Objective Physical Examination General Exam: Positive: Alert, Cooperative, No Acute Distress Eye Exam: Positive: Conjunctiva & lids normal; Negative: Ptosis ENT Exam: Positive: Atraumatic Neck Exam: Positive: Supple Chest Exam: Positive: Clear to auscultation, Normal air movement; Negative: Rales, Rhonchi, Wheezing, Diminished Heart Exam: Positive: Rate Normal, Regular Rhythm, Normal S1, Normal S2; Negative: Murmurs Extremity Exam: Positive: Normal pulses (b/l radial), Other (capillary refill 3-4 sec., motor and sensation intact, left leg braced from knee down); Negative: Edema Neuro Exam: Positive: Normal Speech Psych Exam: Positive: Mental status NL, Mood NL, Memory Intact, Oriented x 3 Assessment /Plan Assessment ASSESSMENT: Pt is a 68 yo female with PMH of COPD, REAL, diverticulitis and diverticulosis, histoplasmosis, HTN, and type 2 DM presented to [facility] as she was told she has JOSE as she had her blood work today. She had a mechanical fall on 01/01/19 and had fractured left fibula and medial malleolus, reported that she has been taking Ibuprofen for the pain. REported 5/10 sharp pain in left anterior tibial region and left medial malleolus. Pt also reported she has several emesis episodes for 2 days after the mechanical fall with decreased appetite, and the nausea/vomiting has resolved today; stating that she has good oral food and fluid intake today. She was evaluated at orthopedic office after the mechanical fall and had her left leg and ankle stabilized. She was originally scheduled for orthopedic procedure on 01/05/19 morning, and she was having her blood work done she was told she has JOSE and was told to come to the ER. Patient admitted to Med/Surg, LR given, repeat BMP to evaluate for improvement scheduled for this am. PLAN: Acute kidney injury -JOSE. Creatinine at 2.41, baseline of 0.84 as measured on 01/01/19, -Continue IV LR -Hypothesized to be secondary to recent history of n/v and decreased appetite. Patient also revealed increased Ibuprofen use in the days prior to admission. -Quiroga catheter placed, good urine output, continue strict I&O. -Repeat BMP pending -Avoid nephrotoxic meds. Vomiting -2 days of nausea and vomiting with decreased appetite which had resolved prior to admission as of 01/04/19 morning. -Likely d/t gastroenteritis. -Abdomen/pelv CT scan was negative for acute GI findings. -Cont home med Zofran PRN Fracture of proximal end of fibula -2/2 mechanical fall. Reported 5/10 sharp pain in anterior tibial region right below the left knee on admission. -Pt originally scheduled for orthopedic surgery on 01/05/19 -Orthopedics was consulted on admission, pt's outpatient orthopedic surgeon Dr. Cabrera will decide if pt will receive orthopedic procedure. -Tylenol and oxycodone/acetaminophen PRN for pain control Fractured medial malleolus -2/2 mechanical fall. Reported 5/10 sharp pain in left medial malleolus region on admission. -Pt originally scheduled for orthopedic surgery on 01/05/19 -Orthopedics was consulted on admission, pt's outpatient orthopedic surgeon Dr. Cabrera will decide if pt will receive orthopedic procedure. -Tylenol and oxycodone/acetaminophen PRN pain. COPD (chronic obstructive pulmonary disease) -On salmeterol/fluticasone as scheduled. -Albuterol PRN. -vital signs as scheduled Pulmonary Nodule - Coronary nodules found incidentally abdomen/pelvis CT. 6 mm groundglass nodule in the right middle lobe that was not seen on prior studies. 4 mm pleural-based nodule at the right lung base anteriorly. - Recommend follow-up CT in 3-6 months, if negative then consider CT at 2 and 4 years Diabetes mellitus type 2 -Patient remains NPO -Cont home DM meds Januvia; -hold metformin as pt has JOSE. -FSBS AC&HS -sliding scale and hypoglycemia protocol. Hypertension -Hold home med furosemide and losartan as pt has JOSE. -BP of 142/86 this am -Cont vital signs as scheduled and cont to monitor the pt Hepatic Steatosis -Plan for outpatient follow-up Plan/VTE VTE Prophylaxis Ordered?: Yes (SC lovenox) VS, I&O, 24H, Fishbone Vital Signs/I&O Vital Signs Date Time Temp Pulse Resp B/P (MAP) Pulse Ox O2 Delivery O2 Flow Rate FiO2 01/05/19 06:15 16 01/05/19 06:00 96.0 68 142/86 (104) 97 01/04/19 21:00 Room Air 01/04/19 16:12 2.0 I&O- Last 24 Hours up to 6 AM 01/05/19 05:59 Intake Total 1050 ml Output Total 1000 ml Balance 50 ml Laboratory Data 24H LABS Laboratory Tests 2 01/04/19 17:09: Immature Granulocyte % (Auto) 0.4, White Blood Count 9.2, Red Blood Count 4.00, Hemoglobin 11.3L, Hematocrit 37.2, Mean Corpuscular Volume 93.0, Mean Corpuscular Hemoglobin 28.3, Mean Corpuscular Hemoglobin Concent 30.4L, Red Cell Distribution Width 14.0, Platelet Count 259, Neutrophils (%) (Auto) 63.8, Lymphocytes (%) (Auto) 19.6L, Monocytes (%) (Auto) 8.8H, Eosinophils (%) (Auto) 7.2H, Basophils (%) (Auto) 0.2, Neutrophils # (Auto) 5.9, Lymphocytes # (Auto) 1.8, Monocytes # (Auto) 0.8, Eosinophils # (Auto) 0.7H, Basophils # (Auto) 0.0, Nucleated Red Blood Cells % (auto) 0.0, Urine Color YELLOW, Urine Appearance CLEAR, Urine pH 5.0, Urine Specific [place] 1.012, Urine Protein NEGATIVE, Urine Glucose (UA) NEGATIVE, Urine Ketones NEGATIVE, Urine Blood NEGATIVE, Urine Nitrite NEGATIVE, Urine Bilirubin NEGATIVE, Urine Urobilinogen 0.2, Urine Leukocyte Esterase NEGATIVE, Urine WBC (Auto) 3, Urine RBC (Auto) 0, Urine Hyaline Casts (Auto) 0, Urine Bacteria (Auto) NEGATIVE, Urine Squamous Epithelial Cells 1, Urine Sperm (Auto) , Anion Gap 6L, Glomerular Filtration Rate 21.4L, Blood Urea Nitrogen 42H, Creatinine 2.41H, Sodium Level 145, Potassium Level 4.6, Chloride Level 112H, Carbon Dioxide Level 27, Calcium Level 8.3L 01/04/19 22:27: Bedside Glucose (Misc Panel) 124H CBC/BMP Laboratory Tests 01/04/19 17:09 Red Blood Count 4.00, Mean Corpuscular Volume 93.0, Mean Corpuscular Hemoglobin 28.3, Mean Corpuscular Hemoglobin Concent 30.4 L, Red Cell Distribution Width 14.0, Neutrophils (%) (Auto) 63.8, Lymphocytes (%) (Auto) 19.6 L, Monocytes (%) (Auto) 8.8 H, Eosinophils (%) (Auto) 7.2 H, Basophils (%) (Auto) 0.2, Neutrophils # (Auto) 5.9, Lymphocytes # (Auto) 1.8, Monocytes # (Auto) 0.8, Eosinophils # (Auto) 0.7 H, Basophils # (Auto) 0.0, Calcium Level 8.3 L GME ATTESTATION GME ATTESTATION My faculty preceptor for this patient encounter was physically present during the encounter and was fully available. All aspects of the patient interview, exa mination, medical decision making process, and medical care plan development were reviewed and approved by the faculty preceptor. The faculty preceptor is aware and concurs with the plan as stated in the body of this note and will attest to such by his/her cosignature. ATTENDING NOTE I saw and Evaluated the patient. I agree with the finding and the plan of care as documented in the resident's note. ASHLEY SPANN DO January 05, 2019 08:06 SCOTT EGAN MD January 05, 2019 12:59
[2019-01-05] MEDS: BRIMONIDINE 0.15% OPHTH SOLN 5 ML OU SCH ×2 (09:00→21:33)
[2019-01-05 09:46] LABS: HEMATOCRIT 33.7 % (36.0-47.0); HEMOGLOBIN 10.3 g/dl (12.0-15.5); MEAN CORPUSCULAR HEMOGLOBIN 28.1 pg (27.0-33.0); MEAN CORPUSCULAR HGB CONC 30.6 g/dl (32.0-36.5); MEAN CORPUSCULAR VOLUME 92.1 fl (80.0-96.0); PLATELET COUNT, AUTOMATED 219 10^3/uL (150-450); RED BLOOD COUNT 3.66 10^6/uL (4.00-5.40); WHITE BLOOD COUNT 7.3 10^3/uL (4.0-10.0)
[2019-01-05] MEDS: ESCITALOPRAM OXALATE 10 MG TAB (LEXAPRO) PO SCH (09:46)
[2019-01-05] MEDS: SITagliptin 50 MG TAB (JANUVIA) PO SCH (09:47)
[2019-01-05 10:04] LABS: CALCIUM LEVEL 8.3 MG/DL (8.8-10.2); CREATININE FOR GFR 1.24 MG/DL (0.55-1.30); GLOMERULAR FILTRATION RATE 46.1 (>45); POTASSIUM SERUM 4.6 MEQ/L (3.5-5.1)
[2019-01-05 14:00] VITALS: BP 157/72
[2019-01-05] MEDS: ENOXAPARIN 30 MG/0.3 ML SYR (J1650) SC SCH (21:00)
[2019-01-05 22:00] VITALS: BP 141/64
[2019-01-06] MEDS: LR 1,000 ML IV SCH ×2 (03:08→06:48)
[2019-01-06 06:00] VITALS: BP 131/63
[2019-01-06] MEDS ORDERED: PERCOCET 5MG/325MG TAB PO PRN (06:30)
[2019-01-06] MEDS: LEVOTHYROXINE 125MCG TABLET (0.125MG) PO SCH (06:31)
[2019-01-06 06:34] LABS: HEMATOCRIT 34.2 % (36.0-47.0); HEMOGLOBIN 10.4 g/dl (12.0-15.5); MEAN CORPUSCULAR HEMOGLOBIN 28.6 pg (27.0-33.0); MEAN CORPUSCULAR HGB CONC 30.4 g/dl (32.0-36.5); PLATELET COUNT, AUTOMATED 199 10^3/uL (150-450); RED BLOOD COUNT 3.64 10^6/uL (4.00-5.40); WHITE BLOOD COUNT 6.6 10^3/uL (4.0-10.0)
[2019-01-06 07:02] LABS: BLOOD UREA NITROGEN 23 MG/DL (7-18); CALCIUM LEVEL 8.5 MG/DL (8.8-10.2); CARBON DIOXIDE LEVEL 32 MEQ/L (21-32); CHLORIDE LEVEL 109 MEQ/L (98-107); CREATININE FOR GFR 0.89 MG/DL (0.55-1.30); GLOMERULAR FILTRATION RATE > 60.0 (>45); GLUCOSE, FASTING 103 MG/DL (70-100); POTASSIUM SERUM 4.2 MEQ/L (3.5-5.1); SODIUM LEVEL 143 MEQ/L (136-145)
[2019-01-06] MEDS: HumaLOG INSULIN (NovoLOG) PER UNIT SC SCH (07:30)
[2019-01-06] MEDS: raNITIdine SYRUP 150 MG/10 ML UDC PO SCH (09:51)
[2019-01-06] MEDS: SITagliptin 50 MG TAB (JANUVIA) PO SCH (09:52)
[2019-01-06] MEDS: ESCITALOPRAM OXALATE 10 MG TAB (LEXAPRO) PO SCH (09:52)
[2019-01-06] MEDS: BRIMONIDINE 0.15% OPHTH SOLN 5 ML OU SCH (09:53)
[2019-01-06] MEDS: TIMOLOL MALEATE 0.25% OPHTH SOLN 5 ML OU SCH (09:53)
[2019-01-06] MEDS ORDERED: AMLO10TA5 PO (10:19)
--- NOTE | 2019-01-06 12:57 | DS.PDOC ---
Discharge Summary General Date of Admission January 04, 2019 at 19:32 Date of Discharge January 06, 2019 Attending Physician: SCOTT EGAN MD Specialist/Consultants Involve: KIKO LIN MD Specialist/Consultants Involve Orthopedics Discharge Summary ADMITTING DIAGNOSES: 1. Acute Kidney Injury 2. Vomiting 3. Proximal fibula fracture 4. Medial Malleolus fracture 5. COPD 6. Diabetes mellitus type 2 7. Hypertension DISCHARGE DIAGNOSES: 1. Acute Kidney Injury 2. Vomiting 3. Proximal fibula fracture 4. Medial Malleolus fracture 5. COPD 6. Diabetes mellitus type 2 7. Hypertension COMPLICATIONS/CHIEF COMPLAINT: JOSE. HISTORY OF PRESENT ILLNESS: Pt is a 68 yo female with PMH of COPD, REAL, diverticulitis and diverticulosis, histoplasmosis, HTN, and type 2 DM presented to [facility] as she was told she has JOSE as she had her blood work today. She had a mechanical fall on 01/01/19 and had fractured left fibula and medial malleolus, reported that she has been taking Ibuprofen for the pain. REported 5/10 sharp pain in left anterior tibial region and left medial malleolus. Pt also reported she has several emesis episodes for 2 days after the mechanical fall with decreased appetite, and the nausea/vomiting has resolved today; stating that she has good oral food and fluid intake today. She was evaluated at orthopedic office after the mechanical fall and had her left leg and ankle stabilized. She was originally scheduled for orthopedic procedure on 01/05/19 morning, and she was having her blood work done she was told she has JOSE and was told to come to the ER. Patient admitted to Med/Surg, LR given, repeat BMP to evaluate for improvement scheduled for this am . HOSPITAL COURSE: She was injected to the floor and her IV hydration was continued. A Quiroga was placed and patient's urine output was monitored. Repeat BMP the morning of 01/05/19 indicated an improving Cr of 1.24. IV hydration was continued throughout the day, BMP on the morning of discharge showed a return to near- baseline Cr of 0.89. Throughout her hospitalization, patient's pain was controlled with oral Percocet and the remainder of her home medications were continued. Unfortunately, patient will be unable to have her surgery performed prior to discharge due to OR scheduling constraints. As her JOSE has improved, patient will be discharged home with a plan to follow-up with Orthopedics as an out- patient on Friday01/08/19. Patient was informed of the aforementioned plan and her questions regarding follow-up answered. She was was in agreement. DISCHARGE MEDICATIONS: Please see below. ALLERGIES: Please see below. PHYSICAL EXAMINATION ON DISCHARGE: VITAL SIGNS: Please see below. GENERAL: Patient was laying comfortably in her hospital bed, R leg wrapped and elevated. Alert and oriented. In no acute distress. HEENT: Normocephalic, atraumatic, EOMI, sclera nonicteric, mucous membranes moist NECK: No JVD, supple without lymphadenopathy CARDIOVASCULAR EXAMINATION: Regular rate and rhythm, normal S1 and S2 RESPIRATORY EXAMINATION: Clear to auscultation bilaterally without wheezing, rales or rhonchi. ABDOMINAL EXAMINATION: soft, nontender, nondistended, bowel sounds present EXTREMITIES: R lower extremity is wrapped and elevated, distal motor and sensory intact, SKIN: No rashes or new/evolving lesions. Resolving bruises noted on patient's R shoulder and R elbow. NEUROLOGICAL EXAMINATION: No focal neurologic deficits, no facial droop or aphasia. PSYCHIATRIC EXAMINATION: Mood and affect are appropriate. LABORATORY DATA: Please see below. IMAGING: Abdomen/Pelvis (01/04/19): No acute findings in the abdomen and pelvis. Patchy atelectasis/consolidation at both lung bases. Patchy infiltrates noted previousl y have resolved and findings in today's examination appear new. Pulmonary nodules which appear new.Recommend CT at 3-6 months. If stable, then consider CT at 2 years and 4 years. Sigmoid colonic diverticula. No diverticulitis. 7 mm low density lesion projecting off the upper pole of the left kidney. This probably not significantly changed from previous. 9 mm paraesophageal lymph node versus diverticulum. No change in hepatic steatosis. ACTIVITY: As recommended by orthopedics. DIET: As tolerated DISCHARGE PLAN: Please follow-up with orthopedics on 01/08/19. Please follow-up with primary care for further evaluation and management of incidental lung and kidney findings. Please return to the ED should your symptoms worsen or fail to improve. DISPOSITION: Discharged home with self-care DISCHARGE CONDITION: Stable TIME SPENT ON DISCHARGE: Greater than 25 minutes. Vital Signs/I&Os Vital Signs Date Time Temp Pulse Resp B/P (MAP) Pulse Ox O2 Delivery O2 Flow Rate FiO2 01/06/19 06:31 16 01/06/19 06:00 96.9 58 131/63 (85) 97 2.0 01/04/19 21:00 Room Air l I&O- Last 24 Hours up to 6 AM 01/06/19 06:00 Intake Total 960 ml Output Total 3150 ml Balance -2190 ml Laboratory Data Labs 24H Laboratory Tests 2 01/05/19 09:28: Nucleated Red Blood Cells % (auto) 0.0, Anion Gap 1L, Glomerular Filtration Rate 46.1, Blood Urea Nitrogen 35H, Creatinine 1.24, Sodium Level 142, Potassium Level 4.6, Chloride Level 112H, Carbon Dioxide Level 29, Calcium Level 8.3L 01/05/19 11:44: Bedside Glucose (Misc Panel) 102 01/05/19 17:26: Bedside Glucose (Misc Panel) 95 01/05/19 20:34: Bedside Glucose (Misc Panel) 146H 01/06/19 05:32: Nucleated Red Blood Cells % (auto) 0.0, Anion Gap 2L, Glomerular Filtration Rate > 60.0, Blood Urea Nitrogen 23H, Creatinine 0.89, Sodium Level 143, Potassium Level 4.2, Chloride Level 109H, Carbon Dioxide Level 32, Calcium Level 8.5L CBC/BMP Laboratory Tests 01/05/19 09:28 Red Blood Count 3.66 L, Mean Corpuscular Volume 92.1, Mean Corpuscular Hemoglo bin 28.1, Mean Corpuscular Hemoglobin Concent 30.6 L, Red Cell Distribution Width 14.0, Calcium Level 8.3 L 01/06/19 05:32 Red Blood Count 3.64 L, Mean Corpuscular Volume 94.0, Mean Corpuscular Hemoglobin 28.6, Mean Corpuscular Hemoglobin Concent 30.4 L, Red Cell Distribution Width 13.7, Calcium Level 8.5 L FSBS Laboratory Tests Test 01/05/19 11:44 01/05/19 17:26 01/05/19 20:34 Range/Units Bedside Glucose (Misc Panel) 102 95 146 80-115 MG/DL Discharge Medications Scheduled Amlodipine Besylate (Amlodipine Besylate) 10 Mg Tablet, 10 MG PO QHS Atorvastatin Calcium (Atorvastatin Calcium) 20 Mg Tab, 20 MG PO QHS, (Reported) Brimonidine Tartrate (Brimonidine Tartrate) 0.2% 5ML Drops, 1 DROP OU BID, (Reported) Clarithromycin (Clarithromycin) 500 Mg Tablet, 500 MG PO BID, (Reported) Escitalopram Oxalate (Escitalopram Oxalate) 20 Mg Tablet, 20 MG PO DAILY, (Reported) Fluticasone/Vilanterol (Breo Ellipta 100-25 Mcg INH) 1 Inh Inh, 1 PUFF INH QHS, (Reported) Latanoprost (Xalatan) 0.005 % [place], 1 DROP OU QHS, (Reported) Levothyroxine Sodium (Levothyroxine Sodium) 125 Mcg Tablet, 125 MCG PO DAILY, (Reported) Metformin HCl (Metformin HCl ER) 500 Mg Tab.er.24h, 1,000 MG PO BID, (Reported) Multivit-Minerals/Folic Acid (Women's Multivitamin Gummies) 200 Mcg Tab.chew, 2 CHW PO DAILY, (Reported) Ranitidine HCl (Ranitidine HCl) 150 Mg Tablet, 1 TAB PO BID, (Reported) Sitagliptin Phosphate (Januvia) 100 Mg Tab, 100 MG PO DAILY, (Reported) Timolol (Betimol) 0.25% 5ML Drops, 1 DROP OU BID, (Reported) Scheduled PRN Furosemide (Furosemide) 20 Mg Tab, 20 MG PO DAILY PRN for LEG SWELLING, (Reported) Ondansetron HCl (Ondansetron HCl) 4 Mg Tablet, 4 MG PO Q6H PRN for NAUSEA OR VOMITING, (Reported) Oxycodone HCl/Acetaminophen (Oxycodone-Acetaminophen 5-325) 1 Each Tablet, 1 TAB PO Q6-8HP PRN for PAIN, (Reported) Allergies Coded Allergies: lisinopril (Verified Allergy, Severe, RASH/DIFFICULTY BREATHING, 01/01/19) morphine (Verified Adverse Reaction, Unknown, NAUSEA/VOMITING, 01/01/19) GME ATTESTATION GME ATTESTATION My faculty preceptor for this patient encounter was physically present during the encounter and was fully available. All aspects of the patient interview, examination, medical decision making process, and medical care plan development were reviewed and approved by the faculty preceptor. The faculty preceptor is aware and concurs with the plan as stated in the body of this note and will attest to such by his/her cosignature. ATTENDING NOTE I saw and evaluated the patient. I agree with the finding and the plan of care as documented in the resident's note. ASHLEY SPANN DO January 06, 2019 10:37 SCOTT EGAN MD January 07, 2019 13:22
== END 2019-01-06 13:00 | disposition home or self-care (01) | DRG 683 ==
LOC: EDUNIT# 15:52 → M ED 15:52 → EDBD 15:52 → M ED INP 19:32 → M MS5PR 22:50
PROVIDERS: ADMIT Internal Medicine; ATTEND Internal Medicine Nephrology
DX: N17.9 Acute kidney failure, unspecified (principal); Z68.41 Body mass index [BMI] 40.0-44.9, adult; J44.9 Chronic obstructive pulmonary disease, unspecified; E66.01 Morbid (severe) obesity due to excess calories; G47.33 Obstructive sleep apnea (adult) (pediatric); I10 Essential (primary) hypertension; E78.5 Hyperlipidemia, unspecified; E11.9 Type 2 diabetes mellitus without complications; F32.9 Major depressive disorder, single episode, unspecified; F41.9 Anxiety disorder, unspecified; E03.9 Hypothyroidism, unspecified; S82.52XA Displaced fracture of medial malleolus of left tibia, initial encounter for closed fracture; Z88.5 Allergy status to narcotic agent; Z88.8 Allergy status to other drugs, medicaments and biological substances; Z79.84 Long term (current) use of oral hypoglycemic drugs; Z79.899 Other long term (current) drug therapy; S82.832A Other fracture of upper and lower end of left fibula, initial encounter for closed fracture; K52.9 Noninfective gastroenteritis and colitis, unspecified; R91.8 Other nonspecific abnormal finding of lung field; W19.XXXA Unspecified fall, initial encounter; Y92.9 Unspecified place or not applicable

== ENCOUNTER 2019-01-12 10:05 | Day surgery (SDC) | payer MEDICARE ==
[~2019-01-12] VITALS: Ht 162.6 cm; Wt 117.9 kg
[~2019-01-12 10:05] MED LIST changes: +AMLO10TA5 PO; +COMB0.2S OP; +IBUP200C25 PO; +MULT1CHW29 PO; +ONDA4TAB5 PO; +ONDA4TAB6 PO
[2019-01-12] MEDS ORDERED: ROPIvacaine 0.5% 30 ML INJECTION (J2795 PER 1MG) ONE (10:06)
[2019-01-12] MEDS ORDERED: dexameTHASONE 10 MG/1 ML VIAL PRES.FREE (J1100) ONE (10:06)
[2019-01-12] MEDS ORDERED: LR 1,000 ML IV SCH ×3 (10:15→14:30)
[2019-01-12] MEDS ORDERED: LIDOCAINE 1% MDV 20ML VIAL SQ PRN (10:15)
[2019-01-12 10:33] LABS: HEMATOCRIT 36.1 % (36.0-47.0); MEAN CORPUSCULAR HEMOGLOBIN 28.6 pg (27.0-33.0); MEAN CORPUSCULAR HGB CONC 30.5 g/dl (32.0-36.5); PLATELET COUNT, AUTOMATED 268 10^3/uL (150-450); RED BLOOD COUNT 3.84 10^6/uL (4.00-5.40); WHITE BLOOD COUNT 7.5 10^3/uL (4.0-10.0)
[2019-01-12 10:42] LABS: INR 1.06; PARTIAL THROMBOPLASTIN TIME 30.8 SECONDS (25.4-37.6); PROTHROMBIN TIME 13.9 SECONDS (12.1-14.4)
[2019-01-12 10:56] LABS: BLOOD UREA NITROGEN 15 MG/DL (7-18); CALCIUM LEVEL 8.8 MG/DL (8.8-10.2); CARBON DIOXIDE LEVEL 34 MEQ/L (21-32); CHLORIDE LEVEL 107 MEQ/L (98-107); CREATININE FOR GFR 0.84 MG/DL (0.55-1.30); GLOMERULAR FILTRATION RATE > 60.0 (>45); GLUCOSE, FASTING 121 MG/DL (70-100); POTASSIUM SERUM 4.5 MEQ/L (3.5-5.1); SODIUM LEVEL 144 MEQ/L (136-145)
[2019-01-12] MEDS ORDERED: fentaNYL 100 MCG/2 ML INJECTION (J3010) As Ordered ONE ×2 (12:03→13:11)
[2019-01-12] MEDS ORDERED: MIDAZOLAM INJ 2 MG/2 ML VIAL (J2250) As Ordered ONE ×2 (12:03→13:11)
[2019-01-12] MEDS: MIDAZOLAM INJ 2 MG/2 ML VIAL (J2250) IV SCH ×2 (12:20→12:25)
[2019-01-12] MEDS ORDERED: LIDOCAINE 2% INJ 100 MG/5 ML SDV (FOR ANES.) As Ordered ONE (13:11)
[2019-01-12] MEDS ORDERED: PROPOFOL 200 MG/20 ML VIAL As Ordered ONE (13:11)
[2019-01-12] MEDS ORDERED: ONDANSETRON 4MG/2ML VIAL (J2405) As Ordered ONE (13:11)
[2019-01-12] MEDS ORDERED: dexameTHASONE 4 MG/ML 1ML VIAL (J1100) As Ordered ONE (13:11)
[2019-01-12] MEDS ORDERED: BUPIVACAINE/DEXTROSE 0.75% 2 ML AMP As Ordered ONE (13:11)
[2019-01-12] MEDS ORDERED: KETAMINE HCL 200 MG/20 ML VIAL As Ordered ONE (13:17)
[2019-01-12] MEDS ORDERED: fentaNYL 100 MCG/2 ML INJECTION (J3010) IV ONE (13:30)
[2019-01-12] MEDS ORDERED: ONDANSETRON 4MG/2ML VIAL (J2405) IV PRN (14:30)
[2019-01-12] MEDS ORDERED: MEPERIDINE INJ 25 MG/ML VIAL (J2175) IV PRN (14:30)
[2019-01-12] MEDS ORDERED: fentaNYL 100 MCG/2 ML INJECTION (J3010) IV PRN (14:30)
[2019-01-12] MEDS ORDERED: METOCLOPRAMIDE INJ 10MG/2ML VIAL (J2765) IV PRN (14:30)
[2019-01-12] MEDS: PERCOCET 5MG/325MG TAB PO PRN ×2 (14:35→15:05)
--- NOTE | 2019-01-12 15:34 | RO ---
DATE OF PROCEDURE: 01/12/2019 PREOPERATIVE DIAGNOSIS: Left ankle fracture ([place]). POSTOPERATIVE DIAGNOSIS: Left ankle fracture ([place]). PLANNED PROCEDURE: Left ankle open reduction, internal fixation. PROCEDURE PERFORMED: Left ankle open reduction, internal fixation. FOSTER CARE CASE MANAGER: Dr. Perez TYPE OF ANESTHETIC: Block and spinal. SURGEON: Dr. Guicho Cabrera OPERATIVE PREAMBLE: This 68-year-old female had a slip and fall while in hospital getting a sleep study. She sustained a medial malleolus fracture plus a high fibular fracture. By its nature, this is an unstable ankle fracture. We talked about pros and cons, risks, benefits going ahead with surgery. I saw her holding and reiterated the specific surgical risks, including, but not limited to, infection, bleeding, bruising, pain, stiffness, osteoarthritis, delayed mal or nonunion, neurovascular injury, repeat surgery, anesthetic complications, and . She wished to go ahead, and we updated consent, and I also signed her left ankle. The swelling appeared reasonable and okay to go ahead with surgery. OPERATIVE REPORT: Patient was brought to the operating theater. She was placed supine on the operating table. Two grams of intravenous (IV) Ancef was administered. A preoperative block had been performed. Spinal anesthesia was induced. The left lower extremity had a 42-inch tourniquet applied. We used the bone foam leg positioner. Sequential compression devices (SCDs) were placed in the right lower extremity. The left lower extremity was prepped draped in usual sterile fashion. Preoperative time-out was performed from the patient and the site. Limb was exsanguinated using a sterile 6-inch Esmarch bandage, elevated, and the tourniquet inflated to 250 mm of mercury prior to be taken down at the and the case prior to skin closure. I made a 3-inch incision centered over the medial malleolus and carried this down through skin and subcutaneous tissue to meticulous hemostasis. I obstructed the saphenous vein. I identified the fracture site. I cleared away any interposed periosteum and fracture hematoma. I made a small 2 mm drill hole proximal to the fracture site. I used a small point-reduction forceps, clamped the fracture anatomically. I examined the fracture posterior-anterior and in the medial aspect of the fracture site to ensure anatomic reduction. I took radiographs to ensure anatomic reduction. I then passed the two guidewires parallel across the fracture site. I then overdrilled the guidewires and then passed two 46 mm long, 4.0 mm in diameter partially-threaded cancellous screws over top of the guidewires. I removed the clamp. The fracture was reduced and held anatomically by the two screws. I then turned my attention to the lateral side of the ankle. I identified the level of the mortise of the ankle joint. I made a slightly curvilinear incision just anterior to the subcutaneous border of the fibula. I carried this dissection down through skin and subcutaneous tissue to meticulous hemostasis. I identified the lateral border of the fibula. I identified the level of the mortise. I confirmed that it was unstable in an anterior-posterior direction. I anatomically reduced the syndesmosis through direct visualization, fracture fixation on the medial side, as well as using intraoperative fluoroscopy. Then using fluoroscopy, I drilled and passed two 3.5 mm fully-threaded cortical screws across all four cortices at the level of the syndesmosis, approximately 1.5-2.5 cm above the level of the joint and parallel to it with the foot in neutral position. I made sure to not over-compress the syndesmosis. Final radiographs were taken in AP, lateral, and mortise views as well as external rotational stress to be performed under light fluoroscopy as well as cotton test under light fluoroscopy. There was no movement or shift of syndesmosis. It appeared properly reduced in the colliculus. I thoroughly irrigated the wounds. I closed the subcutaneous tissue with interrupted 2-0 Vicryl sutures. I closed the skin with gianni. Adaptic dressing was applied followed by sterile 4x gauze and ABD dressings. Sterile cast padding was applied to the lower extremity in a circumferential fashion. I then placed a 3-sided plaster of Sammie back slab with the foot in neutral. I overwrapped this to two sterile 6-inch James bandages. Once the cast had hardened and the patient was a little bit more awake from their sedation with spinal anesthetic, they were transferred off the operating table and taken to postanesthesic care unit in stable condition. All sponge, needle, and instrument counts were correct. Estimated blood loss 50 mL. There were no complications during the course of the procedure. PLAN: The patient is to be nonweightbearing for at least 6-8 weeks given the syndesmosis injury. I will see them back in clinic in 2 weeks' time to remove the splint and check the wound and discontinue the gianni. She will be discharged home hopefully today according to day surgery criteria when she is comfortable and able to mobilize safely non-weightbearing. A prescription should be phoned into their pharmacy through the office already and they will achieve adequate pain control while in the hospital.
--- NOTE | 2019-01-12 16:20 | REP ---
Left ankle: Five views: History: Intraoperative imaging. 32 seconds of fluoroscopy time is reported. Findings: A sequence of five last image hold fluoroscopically obtained spot radiographs of the ankle document open reduction internal fixation procedure. Ankle mortise is intact. Electronically Signed by Troy Nougeira MD 01/12/2019 05:28 P
[2019-01-12 18:00] VITALS: BP 189/74
== END 2019-01-12 18:20 | disposition home or self-care (01) ==
LOC: M SDC 10:05
PROVIDERS: ATTEND Orthopaedic Surgery Sports Medicine
DX: S82.865A Nondisplaced Maisonneuve's fracture of left leg, initial encounter for closed fracture (principal); W19.XXXA Unspecified fall, initial encounter; Y92.239 Unspecified place in hospital as the place of occurrence of the external cause; Y99.9 Unspecified external cause status; Y93.9 Activity, unspecified; I10 Essential (primary) hypertension; E78.5 Hyperlipidemia, unspecified; E11.9 Type 2 diabetes mellitus without complications; E03.9 Hypothyroidism, unspecified; F41.9 Anxiety disorder, unspecified; F32.9 Major depressive disorder, single episode, unspecified; G47.30 Sleep apnea, unspecified; J44.9 Chronic obstructive pulmonary disease, unspecified; Z79.84 Long term (current) use of oral hypoglycemic drugs; Z79.899 Other long term (current) drug therapy; Z88.5 Allergy status to narcotic agent
CPT/HCPCS: 27766; 27829; 36415; 76000; 80048; 85027; 85610; 85730; C1713; J0690; J1100; J2250; J2405; J2795; J3010

== ENCOUNTER → 2019-04-18 | Outpatient (CLI) | payer MEDICARE ==
--- NOTE | 2019-04-22 10:06 | SLEEPCENT ---
DATE OF STUDY: 04/18/2019 ORDERING PROVIDER: Andrew Gomez DO Nocturnal polysomnography was performed for the titration of pressure therapy in this patient with obstructive sleep apnea syndrome. Apnea-hypopnea index 9.8. For testing, a ResMed AirFit F20 full face mask of small size was used. 4 cm of water pressure were applied to the circuit, and the lights were extinguished. 7 hours and 42 minutes of data were reviewed. They were 263 minutes of sleep identified. Sleep latency was prolonged at 37 minutes. Rapid eye movement (REM) latency was prolonged at 208 minutes. Sleep architecture improved with optimal pressure therapy. Overall sleep efficiency was 57.7%. The patient's electrocardiogram showed a sinus rhythm with an average heart rate of 65 beats per minute. Electroencephalogram (EEG) showed reasonably normal waveforms for awake and sleep. Persistence of respiratory events prompted an increase in the continuous positive airway pressure (CPAP) pressure to the optimal of 7 cm. Despite reaching optimal CPAP pressure, the patient displayed hypoxic desaturations, and 2 liters of oxygen was bled in through the CPAP system. Best sleep was seen on CPAP 7 cm with 2 liters of oxygen bled through the CPAP circuit. IMPRESSION: Obstructive sleep apnea syndrome (G47.33). RECOMMENDATION: Nightly use of CPAP 7 cm of water with 2 liters of oxygen bled through the CPAP circuit.
== END ==
LOC: M SLEEP 20:00
PROVIDERS: ATTEND Internal Medicine Pulmonary Disease
DX: G47.33 Obstructive sleep apnea (adult) (pediatric) (principal)

== ENCOUNTER → 2019-05-31 | Outpatient (REF) | payer MEDICARE ==
[~2019-05-31] MED LIST changes: +ONDA-83 PO; -ONDA4TAB5 PO
== END ==
LOC: M LAB REF 12:23
PROVIDERS: ATTEND Nurse Practitioner Family
DX: L02.91 Cutaneous abscess, unspecified (principal)

== ENCOUNTER 2019-07-17 14:22 | Inpatient (IN) | payer MEDICARE ==
[~2019-07-17] VITALS: Ht 162.6 cm; Wt 123.1 kg
[~2019-07-17 14:22] MED LIST changes: -ONDA-83 PO; +ONDA4TAB5 PO
[2019-07-17 15:24] LABS: VENOUS BASE EXCESS 1.4 (-2.0-2.0); VENOUS HCO3 27.7 MEQ/L (23.0-27.0); VENOUS O2 SATURATION 66.5 % (60.0-80.0); VENOUS PARTIAL PRESSURE CO2 50.3 mmHg (38.0-50.0); VENOUS PARTIAL PRESSURE O2 36.5 mmHg (30.0-50.0); VENOUS PH 7.358 UNITS (7.330-7.430); VENOUS STANDARD HCO3 25.1 MEQ/L; VENOUS TOTAL CO2 29.2 MEQ/L (24.0-28.0)
[2019-07-17 15:30] LABS: BASO % 0.4 % (0.0-1.0); EOS # 0.8 10^3/uL (0.0-0.5); EOS % 9.3 % (0.0-3.0); HEMATOCRIT 38.9 % (36.0-47.0); HEMOGLOBIN 11.9 g/dl (12.0-15.5); LYMPH # 1.8 10^3/uL (1.5-5.0); LYMPH % 21.7 % (24.0-44.0); MEAN CORPUSCULAR HEMOGLOBIN 28.7 pg (27.0-33.0); MEAN CORPUSCULAR HGB CONC 30.6 g/dl (32.0-36.5); MEAN CORPUSCULAR VOLUME 93.7 fl (80.0-96.0); MONO # 0.8 10^3/uL (0.0-0.8); MONO % 10.3 % (0.0-5.0); NEUTROPHILS # 4.7 10^3/uL (1.5-8.5); NEUTROPHILS % 57.9 % (36.0-66.0); PLATELET COUNT, AUTOMATED 256 10^3/uL (150-450); RED BLOOD COUNT 4.15 10^6/uL (4.00-5.40); WHITE BLOOD COUNT 8.2 10^3/uL (4.0-10.0)
[2019-07-17 15:55] LABS: BLOOD UREA NITROGEN 15 MG/DL (7-18); CALCIUM LEVEL 8.3 MG/DL (8.8-10.2); CARBON DIOXIDE LEVEL 31 MEQ/L (21-32); CHLORIDE LEVEL 109 MEQ/L (98-107); CREATININE FOR GFR 0.87 MG/DL (0.55-1.30); GLOMERULAR FILTRATION RATE > 60.0 (>45); GLUCOSE, FASTING 118 MG/DL (70-100); NT-PRO BNP 655 PG/ML (<125); SODIUM LEVEL 145 MEQ/L (136-145)
[2019-07-17] MEDS ORDERED: FUROSEMIDE 40 MG/4 ML VIAL (J1940) IV ONE (17:30)
[2019-07-17] MEDS ORDERED: ISOVUE-370 76% 100ML VIAL (Q9967) As Ordered ONE (17:39)
[2019-07-17 18:28] LABS: CK-MB VALUE MASS < 1.0 NG/ML (<3.6); CPK CREATINE PHOSPHOKINASE 37 U/L (26-192); TROPONIN I < 0.02 NG/ML (< 0.10)
--- NOTE | 2019-07-17 18:43 | REPVR ---
PROCEDURE INFORMATION: Exam: CT Angiography Chest With Contrast Exam date and time: 07/17/2019 5:48 PM Clinical history: 68 years old, female; Shortness of breath; Additional info: Elevated d dimer, shortness of breath TECHNIQUE: Imaging protocol: Computed tomographic angiography of the chest with intravenous contrast. 3D rendering: MIP reconstructed images were created and reviewed. Radiation optimization: All CT scans at this facility use at least one of these dose optimization techniques: automated exposure control; mA and/or kV adjustment per patient size (includes targeted exams where dose is matched to clinical indication); or iterative reconstruction. Contrast material: ISOVUE 370; Contrast volume: 75 ml; Contrast route: IV; COMPARISON: CT Chest with contrast 09/22/2017 8:19 AM FINDINGS: Pulmonary arteries: No gross pulmonary emboli demonstrated although contrast density is not optimized for the detection of small peripheral pulmonary emboli. Aorta: The aorta demonstrates mild atherosclerotic calcification. Lungs: Multiple bilateral patchy pulmonary parenchymal infiltrates/masses some of which are cavitating. Pleural space: Small left pleural effusion. Pleural thickening right lung base. Heart: Minimal left pericardial effusion. Lymph nodes: Mediastinal lymphadenopathy measures up to 1.6 cm in the pretracheal retrocaval region and 2 cm in the subcarinal region. Findings may be post inflammatory/infectious or metastatic. Bones/joints: The spine demonstrates mild degenerative changes. Soft tissues: Unremarkable. IMPRESSION: 1. Multiple pulmonary parenchymal opacities. Differential diagnosis includes multifocal pneumonitis, septic emboli, and metastatic disease. 2. Mediastinal lymphadenopathy measures up to 1.6 cm in the pretracheal retrocaval region and 2 cm in the subcarinal region. Findings may be post inflammatory/infectious or metastatic. 3. No gross pulmonary emboli demonstrated although contrast density is not optimized for the detection of small peripheral pulmonary emboli. Electronically signed by: Víctor Mariee On 07/17/2019 18:43:05 PM
[2019-07-17 21:15] LABS: C REACTIVE PROTEIN QUANTITATIV 7.39 MG/DL (0.00-0.30)
[2019-07-17] MEDS ORDERED: ACETAMINOPHEN TAB 650MG DOSE (2X325MG) PO PRN (21:45)
[2019-07-17 23:01] LABS: ABG BASE EXCESS 4.3 (-2.0-2.0); ABG HCO3 28.9 MEQ/L (22.0-26.0); ABG O2 SATURATION 96.2 % (95.0-99.0); ABG PARTIAL PRESSURE CO2 43.1 mmHg (35.0-45.0); ABG PARTIAL PRESSURE O2 86.2 mmHg (75.0-100.0); ABG STANDARD HCO3 28.3 MEQ/L (22.0-26.0); ABG TOTAL CO2 30.2 MEQ/L (23.0-31.0); ABG pH (ARTERIAL) 7.444 UNITS (7.350-7.450)
--- NOTE | 2019-07-17 23:38 | HPEPDOC ---
[facility] Medical History & Physical Date of Admission Jul 17, 2019 Date of Service: Jul 17, 2019 Primary Care Physician: DARLEEN AMADO DO Attending Physician: ANAMARIA CRAWFORD MD History and Physical TIME OF SERVICE: 9:40 PM CHIEF COMPLAINT: Shortness of breath HISTORY OF PRESENT ILLNESS: This is a 68 old female who presents with complaints of shortness of breath for 2 days associated with a cough productive of yellow sputum, and myalgias. She denies having chest pain, denies having a runny nose, denies having congestion, denies having fevers or chills, and denies having worsening of her chronic lower extremity edema. Of note, one of her grandchildren has an upper respiratory tract infection. Per discussion with the ED provider she received one dose of Lasix and has voided, which helped alleviate the shortness of breath, little bit. 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 Chronic hypertension NIDDM Dyslipidemia. Depression/anxiety. Hypothyroidism Glaucoma Sleep apnea on CPAP with 2 L of oxygen Unsteady gait secondary to old left-sided fibula and medial malleolus fracture / uses a walker History of diverticulosis Status post tubal ligation SOCIAL HISTORY: Former smoker Used to work in a sewing factory. FAMILY HISTORY: Father had heart disease and diabetes Mother had Alzheimer's and diabetes ALLERGIES: Please see below. HOME MEDICATIONS: Please see below. PHYSICAL EXAMINATION: VITAL SIGNS: Please see below. GENERAL APPEARANCE: Well-nourished, well-developed, not in apparent distress, sitting up on the examination table, eating her dinner HEENT: Cephalic, atraumatic, mucous membranes moist and pink, nasal cannula is in place, neck is short CARDIOVASCULAR: Regular rate and rhythm. No murmurs, rubs or gallops. Radial pulses are intact. She has trace bilateral lower extremity edema LUNGS:. Her lips are acyanotic. She has equal air entry bilaterally She has scattered expiratory rhonchi ABDOMEN:. Abdomen is soft and nontender. Palpation MUSCULOSKELETAL:. Range of motion is intact in all 4 extremities INTEGUMENT: She does not appear pale or jaundice NEUROLOGICAL: Nerves II-12 are grossly intact. Speech is not dysarthric PSYCHIATRIC:, Alert and oriented to person, place and time, able to understand and follow commands LABORATORY DATA: See below. IMAGING: Chest x-ray shows fluffy bilateral patchy opacities, but the final report is pending. CT of the chest " IMPRESSION: 1. Multiple pulmonary parenchymal opacities. Differential diagnosis includes multifocal pneumonitis, septic emboli, and metastatic disease. 2. Mediastinal lymphadenopathy measures up to 1.6 cm in the pretracheal retrocaval region and 2 cm in the subcarinal region. Findings may be post inflammatory/infectious or metastatic. 3. No gross pulmonary emboli demonstrated although contrast density is not optimized for the detection of small peripheral pulmonary emboli." MICROBIOLOGY: Please see below. Ms. Martinez is a 68 old female with a past medical history of COOP, diabetes, hypertension, chronic hypertension, depression, hypothyroidism, and sleep apnea who will be admitted for evaluation of shortness of breath who's causes is to be determined. ASSESSMENT: 1. Dyspnea Per CT the differential includes multifocal pneumonitis versus septic emboli versus metastatic disease; it is also possible that these findings represent COOP Plan: Admit to medical floor/ continuous his pulse oximetry/ pending ABG & respiratory panel may consult Pulm / give one dose of IV Solu-Medrol/DuoNeb's PRN (in case she has COPD) 2. Cryptogenic organizing pneumonia Plan: Resume home meds including clarithromycin 3. Sleep apnea Plan: Her will bring her CPAP machine 4. NIDDM Recent A1c was 6.7 in December 2015 Plan: diabetic diet / f/u accuchecks & A1C / hypoglycemia protocol / sliding scale insulin / hold oral anti-glycemics 5. Chronic hypertension Plan: Resume home meds + add hydrochlorothiazide 6.25mg daily 6. Dyslipidemia. Plan: Resume home meds 7. Depression/anxiety. Plan: Resume home meds 8. Hypothyroidism Plan: Resume home meds 9. Glucoma Plan: Resume home meds 10. 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 f/u w PCP for synoptic meteorologist consult & referral for Bariatric Surgeon / recommend cardiovascular exercise for 40 min 4-5 days a week DVT prophylaxis with heparin Disposition likely home after more than 2 midnight stay Vital Signs Vital Signs Date Time Temp Pulse Resp B/P (MAP) Pulse Ox O2 Delivery O2 Flow Rate FiO2 07/17/19 20:51 98.8 75 18 196/81 (119) 94 Room Air 07/17/19 16:22 2.0 Laboratory Data Labs 24H Laboratory Tests 2 07/17/19 15:16: Immature Granulocyte % (Auto) 0.4, Neutrophils (%) (Auto) 57.9, Lymphocytes (%) (Auto) 21.7L, Monocytes (%) (Auto) 10.3H, Eosinophils (%) (Auto) 9.3H, Basophils (%) (Auto) 0.4, Neutrophils # (Auto) 4.7, Lymphocytes # (Auto) 1.8, Monocytes # (Auto) 0.8, Eosinophils # (Auto) 0.8H, Basophils # (Auto) 0.0, Nucleated Red Blood Cells % (auto) 0.0, D-Dimer, Quantitative 1957.42H, Blood Gas Bicarbonate Standard 25.1, Venous Blood pH 7.358, Venous Blood Partial Pressure CO2 50.3H, Venous Blood Partial Pressure O2 36.5, Venous Blood Total Carbon Dioxide 29.2H, Venous Blood HCO3 27.7H, Venous Blood Oxygen Saturation 66.5, Venous Blood Base Excess 1.4, Anion Gap 5L, Glomerular Filtration Rate > 60.0, Calcium Level 8.3L, Total Creatine Kinase 37, Creatine Kinase MB < 1.0, Creatine Kinase MB Relative Index 2.70, Troponin I < 0.02, C-Reactive Protein, Quantitative 7.39H, JA-Mbr-C-Type Natriuretic Peptide 655H 07/17/19 22:51: Blood Gas Bicarbonate Standard 28.3H, Arterial Blood pH 7.444, Arterial Blood Partial Pressure CO2 43.1, Arterial Blood Partial Pressure O2 86.2, Arterial Blood Total CO2 30.2, Arterial Blood HCO3 28.9H, Arterial Blood Base Excess 4.3H, Arterial Blood Oxygen Saturation 96.2 CBC/BMP Laboratory Tests 07/17/19 15:16 Microbiology Microbiology 07/17/19 Blood Culture, Received Pending 07/17/19 Blood Culture, Received Pending 07/17/19 Blood Culture, Received Pending Home Medications Scheduled Atorvastatin Calcium (Atorvastatin Calcium) 20 Mg Tab, 20 MG PO QHS Brimonidine Tartrate (Brimonidine Tartrate) 0.2% 5ML Drops, 1 DROP OU BID Clarithromycin (Clarithromycin) 500 Mg Tablet, 500 MG PO BID Escitalopram Oxalate (Escitalopram Oxalate) 20 Mg Tablet, 20 MG PO DAILY Fluticasone/Vilanterol (Breo Ellipta 100-25 Mcg INH) 1 Inh Inh, 1 PUFF INH QHS Latanoprost (Xalatan) 0.005 % Kaila, 1 DROP OU QHS Levothyroxine Sodium (Levothyroxine Sodium) 125 Mcg Tablet, 125 MCG PO DAILY Losartan Potassium (Losartan Potassium) 100 Mg Tablet, 100 MG PO QHS Metformin HCl (Metformin HCl ER) 500 Mg Tab.er.24h, 1,000 MG PO BID Multivit-Minerals/Folic Acid (Women's Multivitamin Gummies) 200 Mcg Tab.chew, 2 CHW PO DAILY Ranitidine HCl (Ranitidine HCl) 150 Mg Tablet, 1 TAB PO BID Sitagliptin Phosphate (Januvia) 100 Mg Tab, 100 MG PO DAILY Timolol (Betimol) 0.25% 5ML Drops, 1 DROP OU BID Scheduled PRN Furosemide (Furosemide) 20 Mg Tab, 20 MG PO DAILY PRN for LEG SWELLING Allergies Coded Allergies: lisinopril (Verified Allergy, Severe, RASH/DIFFICULTY BREATHING, 01/12/19) amlodipine (Verified Allergy, Unknown, hives, 01/12/19) morphine (Verified Adverse Reaction, Unknown, NAUSEA/VOMITING, 01/12/19) A-FIB/CHADSVASC A-FIB History Current/History of A-Fib/PAF?: No Current PO Anticoag Therapy: No ANAMARIA CRAWFORD MD Jul 17, 2019 23:38
[2019-07-18] VITALS (9 sets, daily range): BP systolic 141–174; BP diastolic 67–87; O2SAT 93
[2019-07-18] MEDS ORDERED: methylPREDNISolone INJ 125 MG/2 ML VIAL (J2930) IV STA (00:01)
[2019-07-18] MEDS ORDERED: ENTER DRUG NAME HERE (PATIENT'S OWN MED) INH SCH (00:15)
[2019-07-18] MEDS ORDERED: ALBUTEROL SULFATE 2.5 MG/0.5 ML INH NEB SOLN NEB PRN (00:15)
[2019-07-18] MEDS ORDERED: FUROSEMIDE 20 MG TAB PO PRN (00:15)
[2019-07-18] MEDS ORDERED: GLUCAGON FOR INJ 1 MG VIAL (J1610) SC PRN (00:15)
[2019-07-18] MEDS ORDERED: GLUCOSE 4 GM CHEW TABLET PO PRN (00:15)
[2019-07-18] MEDS ORDERED: DEXTROSE 50% 50 ML SYRINGE IV PRN (00:15)
[2019-07-18] MEDS: LOSARTAN 50 MG TAB PO SCH ×2 (01:33→21:35)
[2019-07-18] MEDS: LEVOTHYROXINE 125MCG TABLET (0.125MG) PO SCH (05:59)
--- NOTE | 2019-07-18 06:48 | REP ---
Chest x-ray: Two views. History: Dyspnea. Cough. Comparison chest x-ray: September 17, 2018. Findings: Oxygen delivery tubing is seen. Surgical sutures are seen in the left apex consistent with previous thoracotomy. There are hazy bilateral multifocal alveolar opacities in the lung reyes. This is a new finding compared with the September 17, 2018 study. The heart is mildly enlarged unchanged. No pleural effusion is seen. Impression: Multifocal hazy areas of ill-defined alveolar somewhat nodular opacity in the lung reyes bilaterally. Post thoracotomy changes on the left. Electronically Signed by Troy Nogueira MD 07/18/2019 08:26 A
[2019-07-18 06:49] LABS: ABG BASE EXCESS 4.5 (-2.0-2.0); ABG HCO3 28.4 MEQ/L (22.0-26.0); ABG O2 SATURATION 97.2 % (95.0-99.0); ABG PARTIAL PRESSURE CO2 39.8 mmHg (35.0-45.0); ABG PARTIAL PRESSURE O2 89.5 mmHg (75.0-100.0); ABG STANDARD HCO3 28.5 MEQ/L (22.0-26.0); ABG TOTAL CO2 29.6 MEQ/L (23.0-31.0); ABG pH (ARTERIAL) 7.471 UNITS (7.350-7.450)
[2019-07-18 07:33] LABS: HEMATOCRIT 39.5 % (36.0-47.0); HEMOGLOBIN 12.3 g/dl (12.0-15.5); MEAN CORPUSCULAR HEMOGLOBIN 28.3 pg (27.0-33.0); MEAN CORPUSCULAR HGB CONC 31.1 g/dl (32.0-36.5); MEAN CORPUSCULAR VOLUME 90.8 fl (80.0-96.0); PLATELET COUNT, AUTOMATED 249 10^3/uL (150-450); RED BLOOD COUNT 4.35 10^6/uL (4.00-5.40); WHITE BLOOD COUNT 6.9 10^3/uL (4.0-10.0)
[2019-07-18] MEDS: CLARITHROMYCIN 250 MG TAB PO SCH ×2 (09:28→21:34)
[2019-07-18] MEDS: HYDROCHLOROthiazide 6.25MG PER 1/4TAB PO SCH (09:28)
[2019-07-18] MEDS: FAMOTIDINE 20 MG TAB PO SCH ×2 (09:28→21:35)
[2019-07-18] MEDS: ESCITALOPRAM OXALATE 10 MG TAB (LEXAPRO) PO SCH (09:28)
[2019-07-18] MEDS: HEPARIN SOD (PORCINE) 5000 UNITS/ML VIAL SC SCH ×2 (09:29→21:35)
[2019-07-18] MEDS: HumaLOG INSULIN (NovoLOG) PER UNIT SC SCH ×3 (09:30→18:09)
[2019-07-18] MEDS: BRIMONIDINE 0.1% OPHTH SOLN 5 ML OU SCH ×3 (09:30→21:36)
[2019-07-18] MEDS: TIMOLOL MALEATE 0.25% OPHTH SOLN 5 ML OU SCH ×2 (09:30→21:36)
[2019-07-18 11:01] LABS: BLOOD UREA NITROGEN 20 MG/DL (7-18); CALCIUM LEVEL 9.1 MG/DL (8.8-10.2); CARBON DIOXIDE LEVEL 29 MEQ/L (21-32); CHLORIDE LEVEL 104 MEQ/L (98-107); CREATININE FOR GFR 0.98 MG/DL (0.55-1.30); GLOMERULAR FILTRATION RATE > 60.0 (>45); GLUCOSE, FASTING 251 MG/DL (70-100); POTASSIUM SERUM 3.8 MEQ/L (3.5-5.1); SODIUM LEVEL 142 MEQ/L (136-145)
--- NOTE | 2019-07-18 12:09 | ECGEPIP ---
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
--- NOTE | 2019-07-18 16:03 | IPNPDOC ---
Subjective Date Seen The patient was seen on 07/18/19. Subjective Chief Complaint/HPI shortness of breath Events since last encounter Pt c/o mild shortness of breath and cough but stated that it has significantly improved. Objective Physical Examination General Exam: Positive: Alert, Cooperative, No Acute Distress Eye Exam: Positive: PERRLA ENT Exam: Positive: Mucous membr. moist/pink Neck Exam: Positive: Supple Chest Exam: Positive: Other (b/l decreased breath sounds, ) Heart Exam: Positive: Rate Normal Abdomen Exam: Positive: Normal bowel sounds, Soft Skin Exam: Positive: Nl turgor and temperature Neuro Exam: Positive: Normal Speech, Strength at 5/5 X4 ext Psych Exam: Positive: Mental status NL, Mood NL Assessment /Plan Assessment 68 y/o F with h/o COOP, diabetes, hypertension, chronic hypertension, depression, hypothyroidism, and sleep apnea was admitted for dyspnea Labs and imaging studies reviewed. CT the differential includes multifocal pneumonitis versus septic emboli versus metastatic disease; it is also possible that these findings represent COOP On review of clinic notes it was found out that pt does have h/o Asthma and was on controller inhaler. Pt was given iv steroids in ER. ASSESSMENT: 1. Dyspnea Improving most probably secondary to suspected episode of acute asthma exacerbation Plan: will start pt on symbicort and continue albuterol prn o/p pulmonary f/u 2. Cryptogenic organizing pneumonia Plan: home meds including clarithromycin 3. Sleep apnea Plan: CPAP 4. NIDDM Recent A1c was 6.7 in December 2015 Plan: diabetic diet / f/u accuchecks & A1C / hypoglycemia protocol / sliding scale insulin 5. HTN home meds + add hydrochlorothiazide 6.25mg daily 6. Dyslipidemia. home meds 7. Depression/anxiety. home meds 8. Hypothyroidism home meds 9. Glucoma home meds 10. Obesity Home meds DVT prophylaxis with heparin Plan/VTE VTE Prophylaxis Ordered?: Yes VS, I&O, 24H, Fishbone Vital Signs/I&O Vital Signs Date Time Temp Pulse Resp B/P (MAP) Pulse Ox O2 Delivery O2 Flow Rate FiO2 07/18/19 10:00 97.7 78 16 152/87 (108) 93 Nasal Cannula 2.0 I&O- Last 24 Hours up to 6 AM 07/18/19 05:59 Output Total 1600 ml Balance -1600 ml Laboratory Data 24H LABS Laboratory Tests 2 11/16/19 22:51: Blood Gas Bicarbonate Standard 28.3H, Arterial Blood pH 7.444, Arterial Blood Partial Pressure CO2 43.1, Arterial Blood Partial Pressure O2 86.2, Arterial Blood Total CO2 30.2, Arterial Blood HCO3 28.9H, Arterial Blood Base Excess 4.3H, Arterial Blood Oxygen Saturation 96.2 07/18/19 06:07: Blood Gas Bicarbonate Standard 28.5H, Arterial Blood pH 7.471H, Arterial Blood Partial Pressure CO2 39.8, Arterial Blood Partial Pressure O2 89.5, Arterial Blood Total CO2 29.6, Arterial Blood HCO3 28.4H, Arterial Blood Base Excess 4.5H, Arterial Blood Oxygen Saturation 97.2 07/18/19 07:18: Nucleated Red Blood Cells % (auto) 0.0, Anion Gap 9, Glomerular Filtration Rate > 60.0, Calcium Level 9.1 07/18/19 08:38: Bedside Glucose (Misc Panel) 246H 07/18/19 11:57: Bedside Glucose (Misc Panel) 280H CBC/BMP Laboratory Tests 07/18/19 07:18 Microbiology Microbiology 07/18/19 Respiratory Virus Panel (PCR) (JUAN) - Final, Complete 07/17/19 Blood Culture, Received Pending 07/17/19 Blood Culture, Received Pending 07/17/19 Blood Culture, Received Pending ANDRADE HUGHES MD Jul 18, 2019 16:03
[2019-07-18] MEDS: SYMBICORT 80/4.5MCG INHALER 6GM INH SCH ×2 (20:14→21:00)
[2019-07-18] MEDS ORDERED: HumaLOG INSULIN (NovoLOG) PER UNIT SC SCH (21:00)
[2019-07-18] MEDS ORDERED: LATANOPROST 0.005% OPHTH SOLN 2.5 ML OU SCH (21:00)
[2019-07-18] MEDS ORDERED: ATORVASTATIN 20 MG TAB PO SCH (21:00)
[2019-07-19] VITALS (7 sets, daily range): BP systolic 132–188; BP diastolic 67–100; O2SAT 90–92
[2019-07-19] MEDS: LEVOTHYROXINE 125MCG TABLET (0.125MG) PO SCH (05:49)
[2019-07-19] MEDS: HYDROCHLOROthiazide 6.25MG PER 1/4TAB PO SCH (06:36)
[2019-07-19] MEDS: SYMBICORT 80/4.5MCG INHALER 6GM INH SCH (07:29)
[2019-07-19] MEDS: CLARITHROMYCIN 250 MG TAB PO SCH (08:53)
[2019-07-19] MEDS: FAMOTIDINE 20 MG TAB PO SCH (08:53)
[2019-07-19] MEDS: ESCITALOPRAM OXALATE 10 MG TAB (LEXAPRO) PO SCH (08:53)
[2019-07-19] MEDS: HumaLOG INSULIN (NovoLOG) PER UNIT SC SCH ×2 (08:54→12:00)
[2019-07-19] MEDS: HEPARIN SOD (PORCINE) 5000 UNITS/ML VIAL SC SCH (08:54)
[2019-07-19] MEDS: BRIMONIDINE 0.1% OPHTH SOLN 5 ML OU SCH (08:55)
[2019-07-19] MEDS: TIMOLOL MALEATE 0.25% OPHTH SOLN 5 ML OU SCH (08:55)
[2019-07-19] MEDS ORDERED: PREVNAR 13 VACCINE SYRINGE (CPT CODE:90670) IM ONE (09:00)
--- NOTE | 2019-07-19 14:37 | DS.PDOC ---
Discharge Summary General Date of Admission Jul 17, 2019 at 21:32 Date of Discharge 07/19/19 Discharge Summary ADMITTING DIAGNOSES: Shortness of breath DISCHARGE DIAGNOSES: Resolved episode of shortness of breath most probably secondary to suspected asthma exacerbation COMPLICATIONS/CHIEF COMPLAINT: Shortness of breath HISTORY OF PRESENT ILLNESS: "68 old female who presents with complaints of shortness of breath for 2 days associated with a cough productive of yellow sputum, and myalgias. She denies having chest pain, denies having a runny nose, denies having congestion, denies having fevers or chills, and denies having worsening of her chronic lower extremity edema. Of note, one of her grandchildren has an upper respiratory tract infection. Per discussion with the ED provider she received one dose of Lasix and has voided, which helped alleviate the shortness of breath, little bit." HOSPITAL COURSE: 68 y/o F initially came c/o shortness of breath and was found hypoxic. Pt was started on steroids, duonebs and supplemental oxygen. Over the course of treatment pt clinical condition improved and shortness of breath resolved. Pt might have chronic hypoxic respiratory failure secondary to asthma/REAL and will require supplemental oxygen. Pt was seen and examined at bedside on day of discharge. Pt stated that she is feeling fine and did not have any complaint. Pt was clinically and vitally stable at the time of discharge. Pt was instructed to f/u with PMD and pulmonary service after discharge. PHYSICAL EXAMINATION ON DISCHARGE: VITAL SIGNS: Please see below. GENERAL: comfortable, HEENT: Oral mucosa moist CARDIOVASCULAR EXAMINATION: Regular rate and rhythm RESPIRATORY EXAMINATION: b/l decreased breath sounds, no added sounds ABDOMINAL EXAMINATION: soft EXTREMITIES: NO edema NEUROLOGICAL EXAMINATION: No focal deficit I spent 35 minutes of time in coordinating discharge of this patient Vital Signs/I&Os Vital Signs Date Time Temp Pulse Resp B/P (MAP) Pulse Ox O2 Delivery O2 Flow Rate FiO2 07/19/19 13:50 90 Nasal Cannula 2.0 07/19/19 10:00 97.5 60 23 167/93 (117) I&O- Last 24 Hours up to 6 AM 07/19/19 06:00 Intake Total 2545 ml Output Total 1525 ml Balance 1020 ml Laboratory Data Labs 24H Laboratory Tests 2 07/18/19 16:57: Bedside Glucose (Misc Panel) 202H 07/18/19 21:26: Bedside Glucose (Misc Panel) 210H 07/19/19 06:50: Bedside Glucose (Misc Panel) 171H 07/19/19 08:19: Bedside Glucose (Misc Panel) 181H 07/19/19 11:44: Bedside Glucose (Misc Panel) 105 FSBS Laboratory Tests Test 07/18/19 16:57 07/18/19 21:26 07/19/19 06:50 07/19/19 08:19 Range/Units Bedside Glucose (Misc Panel) 202 210 171 181 80-115 MG/DL Test 07/19/19 11:44 Range/Units Bedside Glucose (Misc Panel) 105 80-115 MG/DL Microbiology Microbiology 07/18/19 Respiratory Virus Panel (PCR) (JUAN) - Final, Complete 07/17/19 Blood Culture - Preliminary, Resulted No growth after 24 hours . All specim... 07/17/19 Blood Culture - Preliminary, Resulted No growth after 24 hours . All specim... 07/17/19 Blood Culture - Preliminary, Resulted No growth after 24 hours . All specim... Discharge Medications Scheduled Atorvastatin Calcium (Atorvastatin Calcium) 20 Mg Tab, 20 MG PO QHS, (Reported) Brimonidine Tartrate (Brimonidine Tartrate) 0.2% 5ML Drops, 1 DROP OU BID, (Reported) Clarithromycin (Clarithromycin) 500 Mg Tablet, 500 MG PO BID, (Reported) Escitalopram Oxalate (Escitalopram Oxalate) 20 Mg Tablet, 20 MG PO DAILY, (Reported) Fluticasone/Vilanterol (Breo Ellipta 100-25 Mcg INH) 1 Inh Inh, 1 PUFF INH QHS, (Reported) Latanoprost (Xalatan) 0.005 % Kaila, 1 DROP OU QHS, (Reported) Levothyroxine Sodium (Levothyroxine Sodium) 125 Mcg Tablet, 125 MCG PO DAILY, (Reported) Losartan Potassium (Losartan Potassium) 100 Mg Tablet, 100 MG PO QHS, (Reported) Metformin HCl (Metformin HCl ER) 500 Mg Tab.er.24h, 1,000 MG PO BID, (Reported) Multivit-Minerals/Folic Acid (Women's Multivitamin Gummies) 200 Mcg Tab.chew, 2 CHW PO DAILY, (Reported) Ranitidine HCl (Ranitidine HCl) 150 Mg Tablet, 1 TAB PO BID, (Reported) Sitagliptin Phosphate (Januvia) 100 Mg Tab, 100 MG PO DAILY, (Reported) Timolol (Betimol) 0.25% 5ML Drops, 1 DROP OU BID, (Reported) Scheduled PRN Furosemide (Furosemide) 20 Mg Tab, 20 MG PO DAILY PRN for LEG SWELLING, (Reported) Allergies Coded Allergies: lisinopril (Verified Allergy, Severe, RASH/DIFFICULTY BREATHING, 01/12/19) amlodipine (Verified Allergy, Unknown, hives, 01/12/19) morphine (Verified Adverse Reaction, Unknown, NAUSEA/VOMITING, 01/12/19) ANDRADE HUGHES MD Jul 19, 2019 14:37
== END 2019-07-19 15:54 | disposition home or self-care (01) | DRG 202 ==
LOC: M ED 14:22 → M ED INP 21:32 → M MSPAV 07-18 02:00
PROVIDERS: ADMIT Internal Medicine; ATTEND Internal Medicine
DX: J45.901 Unspecified asthma with (acute) exacerbation (principal); E24.2 Drug-induced Cushing's syndrome; Z68.42 Body mass index [BMI] 45.0-49.9, adult; J96.11 Chronic respiratory failure with hypoxia; I10 Essential (primary) hypertension; E11.9 Type 2 diabetes mellitus without complications; E78.5 Hyperlipidemia, unspecified; E66.01 Morbid (severe) obesity due to excess calories; F32.9 Major depressive disorder, single episode, unspecified; F41.9 Anxiety disorder, unspecified; E03.9 Hypothyroidism, unspecified; H40.9 Unspecified glaucoma; G47.30 Sleep apnea, unspecified; R26.81 Unsteadiness on feet; Z87.891 Personal history of nicotine dependence; Z79.84 Long term (current) use of oral hypoglycemic drugs; Z79.899 Other long term (current) drug therapy; Z88.8 Allergy status to other drugs, medicaments and biological substances; Z88.5 Allergy status to narcotic agent

== ENCOUNTER → 2019-08-05 | Outpatient (CLI) | payer MEDICARE ==
[~2019-08-05] MED LIST changes: +ISOVUE-370 76% 100ML VIAL (Q9967) As Ordered ONE
--- NOTE | 2019-08-05 12:56 | REP ---
Clinical: History of cryptogenic organizing pneumonia. Technique: Axial contrast enhanced images from the thoracic inlet to the upper abdomen with coronal and sagittal re-formations. Comparison: 07/17/2019. Findings: Scattered chronic interstitial changes and scarring noted along with subtle residual scattered areas of minimal ground-glass opacity. There has been considerable improvement and near complete resolution to the previously noted multi focal pneumonia. No new area of consolidation. No effusion. No pneumothorax. Tracheobronchial tree is patent. Mediastinal and hilar adenopathy has decreased. Further evaluation of the mediastinum including thoracic aorta, pulmonary vasculature and heart/pericardium remains stable and grossly normal. Stable cardiomegaly is again suggested. Impression: Near complete resolution to the previously noted multifocal pneumonia. Only minimal subtle scattered residual ground-glass opacities noted. No new acute process. Electronically Signed by Dennis Biggs MD 08/05/2019 12:47 P
== END ==
LOC: M RAD 11:01
PROVIDERS: ATTEND Internal Medicine Pulmonary Disease
DX: J84.116 Cryptogenic organizing pneumonia (principal)
CPT/HCPCS: 71260; Q9967

== ENCOUNTER → 2020-02-01 | Outpatient (REF) | payer MEDICARE ==
[~2020-02-01] MED LIST changes: -CLAR500T PO; +CLAR500T97 PO; -ISOVUE-370 76% 100ML VIAL (Q9967) As Ordered ONE; +ONDA-83 PO; -ONDA4TAB5 PO
[2020-02-01 11:20] LABS: BASO # 0.1 10^3/uL (0.0-0.2); BASO % 0.7 % (0.0-1.0); EOS # 0.4 10^3/uL (0.0-0.5); EOS % 5.7 % (0.0-3.0); HEMATOCRIT 42.3 % (36.0-47.0); HEMOGLOBIN 13.1 g/dl (12.0-15.5); LYMPH # 2.3 10^3/uL (1.5-5.0); LYMPH % 30.3 % (24.0-44.0); MEAN CORPUSCULAR HEMOGLOBIN 29.1 pg (27.0-33.0); MONO # 0.6 10^3/uL (0.0-0.8); MONO % 7.7 % (0.0-5.0); NEUTROPHILS # 4.2 10^3/uL (1.5-8.5); NEUTROPHILS % 55.1 % (36.0-66.0); PLATELET COUNT, AUTOMATED 264 10^3/uL (150-450); WHITE BLOOD COUNT 7.6 10^3/uL (4.0-10.0)
[2020-02-01 13:09] LABS: MALB URINE SIEMENS 16.2 MG/L; MAU/CREAT RATIO 9.7 MCG/MG (0.0-30.0)
[2020-02-01 13:42] LABS: HEMOGLOBIN A1c 6.8 %
[2020-02-01 20:30] LABS: ALBUMIN 3.3 GM/DL (3.2-5.2); BILIRUBIN,TOTAL 0.4 MG/DL (0.2-1.0); CALCIUM LEVEL 8.7 MG/DL (8.8-10.2); CHOLESTEROL RISK RATIO 3.045 (<5); CREATININE FOR GFR 1.1 MG/DL (0.55-1.30); FREE T4 1.7 NG/DL (0.76-1.46); GLOMERULAR FILTRATION RATE 52.7 (>45); POTASSIUM SERUM 4.6 MEQ/L (3.5-5.1); THYROID STIMULATING HORMONE 0.718 uIU/ML (0.358-3.740); TOTAL 25(OH) VITAMIN D 38.8 NG/ML (30.0-100.0); TOTAL PROTEIN 6.8 GM/DL (6.4-8.2)
== END ==
LOC: M PLALAB 08:15
PROVIDERS: ATTEND Nurse Practitioner Family
DX: E03.9 Hypothyroidism, unspecified (principal); I10 Essential (primary) hypertension; E11.9 Type 2 diabetes mellitus without complications; E78.5 Hyperlipidemia, unspecified; E55.9 Vitamin D deficiency, unspecified; Z79.899 Other long term (current) drug therapy

== ENCOUNTER → 2020-03-06 | Outpatient (CLI) | payer MEDICARE | LOC: M LABSMTC 09:37 | PROVIDERS: ATTEND Anesthesiology | DX: Z11.59 Encounter for screening for other viral diseases (principal); Z03.89 Encounter for observation for other suspected diseases and conditions ruled out; Z01.818 Encounter for other preprocedural examination | CPT/HCPCS: C9803; U0003 ==

== ENCOUNTER 2020-03-09 10:23 | Day surgery (SDC) | payer MEDICARE ==
[~2020-03-09] VITALS: Ht 162.6 cm; Wt 122.9 kg
[~2020-03-09 10:23] MED LIST changes: +CEFUROXIME 1MG/0.1ML INTRACAMERAL INJ As Ordered ONE; +DUOVISC (0.50ML VISCOAT/0.55ML PROVISC) OPHTH KIT As Ordered ONE; +OFLOXACIN 0.3 % (OCUFLOX) OPTH SOL 5ML OD ONE; +PHENYLEPHRINE 2.5% OPHTH SOL 2ML OD ONE; +POVIDONE-IODINE 5% OPHTH PREP SOL 30ML As Ordered ONE; +PROPARACAINE 0.5% OPHTH SOL 15ML OD ONE; +TROPICAMIDE 1% OPHTH SOLN 2ML OD ONE
[2020-03-09] MEDS ORDERED: MIDAZOLAM INJ 2MG/2ML VIAL (J2250 PER 1MG) As Ordered ONE (10:52)
[2020-03-09] MEDS ORDERED: fentaNYL 100 MCG/2 ML INJECTION (J3010) As Ordered ONE (10:52)
[2020-03-09] MEDS ORDERED: BSS IRR 500ML/OMIDRIA 4ML IRR BAG (OR ONLY) (J1097 PER ML) As Ordered ONE (11:10)
[2020-03-09] MEDS ORDERED: ACETYLCHOLINE OPHTH SOLN 1% 2ML (MIOCHOL-E) As Ordered ONE (11:22)
[2020-03-09 12:55] VITALS: BP 123/58
== END 2020-03-09 13:40 | disposition home or self-care (01) ==
LOC: M SDC 10:23
PROVIDERS: ATTEND Ophthalmology
DX: H25.11 Age-related nuclear cataract, right eye (principal); H40.1110 Primary open-angle glaucoma, right eye, stage unspecified; E78.00 Pure hypercholesterolemia, unspecified; I10 Essential (primary) hypertension; E11.9 Type 2 diabetes mellitus without complications; E03.9 Hypothyroidism, unspecified; J44.9 Chronic obstructive pulmonary disease, unspecified; G47.33 Obstructive sleep apnea (adult) (pediatric); F41.9 Anxiety disorder, unspecified; F32.9 Major depressive disorder, single episode, unspecified; Z85.41 Personal history of malignant neoplasm of cervix uteri; Z79.84 Long term (current) use of oral hypoglycemic drugs; Z79.899 Other long term (current) drug therapy; Z88.5 Allergy status to narcotic agent; Z88.8 Allergy status to other drugs, medicaments and biological substances
CPT/HCPCS: 65820; 66174; 66984; J1097; J2250; J3010; V2632

== ENCOUNTER → 2020-03-18 | Outpatient (CLI) | payer MEDICARE ==
[~2020-03-18] MED LIST changes: -AMLO10TA5 PO; +AMLO1TAB25 PO; -CEFUROXIME 1MG/0.1ML INTRACAMERAL INJ As Ordered ONE; -DUOVISC (0.50ML VISCOAT/0.55ML PROVISC) OPHTH KIT As Ordered ONE; -OFLOXACIN 0.3 % (OCUFLOX) OPTH SOL 5ML OD ONE; -PHENYLEPHRINE 2.5% OPHTH SOL 2ML OD ONE; -POVIDONE-IODINE 5% OPHTH PREP SOL 30ML As Ordered ONE; -PROPARACAINE 0.5% OPHTH SOL 15ML OD ONE; -TROPICAMIDE 1% OPHTH SOLN 2ML OD ONE
== END ==
LOC: M LABSMTC 11:52
PROVIDERS: ATTEND Anesthesiology
DX: Z01.818 Encounter for other preprocedural examination (principal); Z11.59 Encounter for screening for other viral diseases
CPT/HCPCS: C9803; U0003

== ENCOUNTER → 2020-05-21 | Outpatient (REF) | payer MEDICARE | LOC: M LAB REF 14:55 | PROVIDERS: ATTEND Physician Assistant | DX: R10.9 Unspecified abdominal pain (principal) ==

== ENCOUNTER → 2020-06-22 | Outpatient (REF) | payer MEDICARE ==
[2020-06-22 10:33] LABS: BASO % 0.4 % (0.0-1.0); EOS # 0.5 10^3/uL (0.0-0.5); EOS % 5.7 % (0.0-3.0); HEMATOCRIT 42.9 % (36.0-47.0); LYMPH # 2.6 10^3/uL (1.5-5.0); LYMPH % 28.3 % (24.0-44.0); MEAN CORPUSCULAR HEMOGLOBIN 28.3 pg (27.0-33.0); MEAN CORPUSCULAR HGB CONC 30.3 g/dl (32.0-36.5); MEAN CORPUSCULAR VOLUME 93.3 fl (80.0-96.0); MONO # 0.7 10^3/uL (0.0-0.8); MONO % 7.2 % (0.0-5.0); NEUTROPHILS # 5.2 10^3/uL (1.5-8.5); PLATELET COUNT, AUTOMATED 268 10^3/uL (150-450)
[2020-06-22 10:38] LABS: ALBUMIN 3.1 GM/DL (3.2-5.2); BILIRUBIN,TOTAL 0.4 MG/DL (0.2-1.0); CALCIUM LEVEL 8.6 MG/DL (8.8-10.2); CREATININE FOR GFR 1.07 MG/DL (0.55-1.30); GLOMERULAR FILTRATION RATE 54.5 (>45); POTASSIUM SERUM 4.1 MEQ/L (3.5-5.1); TOTAL PROTEIN 6.6 GM/DL (6.4-8.2)
[2020-06-22 11:13] LABS: HEMOGLOBIN A1c 6.6 %
== END ==
LOC: M PLALAB 08:07
PROVIDERS: ATTEND Nurse Practitioner Family
DX: I10 Essential (primary) hypertension (principal); E78.5 Hyperlipidemia, unspecified; E11.9 Type 2 diabetes mellitus without complications

== ENCOUNTER → 2020-07-04 | Outpatient (CLI) | payer MEDICARE ==
--- NOTE | 2020-07-04 09:44 | REP ---
INDICATION: ABDOMINAL PAIN FILE ROOM. COMPARISON: Comparison CT study January 04, 2019.. TECHNIQUE: Complete transabdominal abdomen sonogram. FINDINGS: Scanning through the right upper quadrant of the abdomen demonstrates a normal-sized and wall gallbladder containing a 2.3 cm shadowing echogenic gallstone. The liver is normal in size homogeneous in texture somewhat hyperechoic question fatty infiltration. No focal liver lesion is seen. The common bile duct is normal measuring 0.4 cm in greatest diameter. Pancreas is partially obscured by abdominal gas. No pancreatic cyst or mass is observed. There is no evidence of ascites. Heterogeneous spleen is seen without focal lesion. Spleen is at the upper range of normal in size measuring 11.9 cm in greatest diameter. Renal cortical echogenicity pattern is normal and renal contours are smooth bilaterally. The right kidney measures 9.1 x 4.7 x 4.5 cm. Left renal dimensions are 9.5 x 4.7 x 4.9 cm. IMPRESSION: Scan quality is somewhat inhibited by patient body habitus. Cholelithiasis is seen. Mild fatty infiltration of the liver suspected. Otherwise negative. <Electronically signed by Aquiles Nogueira > 07/04/20 0926
== END ==
LOC: M RAD 08:01
PROVIDERS: ATTEND Internal Medicine Infectious Disease
DX: R10.9 Unspecified abdominal pain (principal); K80.20 Calculus of gallbladder without cholecystitis without obstruction

== ENCOUNTER → 2020-07-20 | Outpatient (CLI) | payer MEDICARE ==
[~2020-07-20] MED LIST changes: +GASTROGRAFIN SOLUTION 30ML (Q9963) As Ordered ONE; +ISOVUE-370 76% 100ML VIAL As Ordered ONE
--- NOTE | 2020-07-20 14:16 | REP ---
INDICATION: ABD PAIN. COMPARISON: 01/14/2019 the latest prior exam and 01/02/2016 the latest prior contrast-enhanced exam. TECHNIQUE: 100 cc Isovue 370 and oral bowel preparatory contrast administration. FINDINGS: In the lung bases, there are multiple curvilinear densities, nodules, and asymmetric densities some of which are partially imaged. There are no pleural or pericardial effusions. The liver, gallbladder, spleen, pancreas, and adrenal glands are unremarkable. Subcentimeter sized low-density structures are seen 1 in each kidney and slightly increased in size from the 01/02/2016 CT scan. These are benign tiny renal cortical cysts. The abdominal aorta and para-aortic regions are within normal limits. There is sigmoid colon diverticulosis. The bowel loops and the mesenteries are otherwise unremarkable. There is no free fluid or free air. There is no evidence of a mass or adenopathy. There is no free fluid or free air. There is no significant change in the appearance of the imaged osseous structures. IMPRESSION: 1. Findings in the lung bases as described above. CT examination of the chest is recommended as per the revised Fleischner society criteria. This recommended chest CT can be compared to the latest prior chest CT of 08/05/2019. 2. Diverticulosis but no evidence of diverticulitis. 3. Other findings as described above. <Electronically signed by Conner Topete > 07/20/20 [id number]
== END ==
LOC: M RAD 09:03
PROVIDERS: ATTEND Nurse Practitioner Family
DX: R10.9 Unspecified abdominal pain (principal)
CPT/HCPCS: 74177; Q9963; Q9967

== ENCOUNTER → 2020-08-09 | Outpatient (REF) | payer MEDICARE ==
[~2020-08-09] MED LIST changes: -GASTROGRAFIN SOLUTION 30ML (Q9963) As Ordered ONE; -ISOVUE-370 76% 100ML VIAL As Ordered ONE
[2020-08-09 11:23] LABS: FREE T4 1.41 NG/DL (0.76-1.46)
== END ==
LOC: M PLALAB 08:13
PROVIDERS: ATTEND Nurse Practitioner Family
DX: E03.9 Hypothyroidism, unspecified (principal)

== ENCOUNTER → 2020-10-17 | Outpatient (REF) | payer MEDICARE ==
[~2020-10-17] MED LIST changes: -ESCI20TA PO; +ESCI20TA16 PO
[2020-10-17 10:19] LABS: HEMOGLOBIN A1c 6.8 %
[2020-10-17 10:31] LABS: ALBUMIN 3.3 GM/DL (3.2-5.2); BILIRUBIN,TOTAL 0.4 MG/DL (0.2-1.0); CALCIUM LEVEL 8.9 MG/DL (8.8-10.2); CHOLESTEROL RISK RATIO 4.228 (<5); CREATININE FOR GFR 1.25 MG/DL (0.55-1.30); FREE T4 1.39 NG/DL (0.76-1.46); GLOMERULAR FILTRATION RATE 45.5 (>45); MAGNESIUM LEVEL 1.8 MG/DL (1.8-2.4); POTASSIUM SERUM 4.4 MEQ/L (3.5-5.1); THYROID STIMULATING HORMONE 3.27 uIU/ML (0.358-3.740); TOTAL PROTEIN 6.8 GM/DL (6.4-8.2)
[2020-10-17 10:34] LABS: MALB URINE SIEMENS 28.5 MG/L; MAU/CREAT RATIO 9.8 MCG/MG (0.0-30.0)
== END ==
LOC: M PLALAB 08:56
PROVIDERS: ATTEND Nurse Practitioner Family
DX: E11.9 Type 2 diabetes mellitus without complications (principal); E03.9 Hypothyroidism, unspecified; R14.0 Abdominal distension (gaseous); E78.5 Hyperlipidemia, unspecified; I10 Essential (primary) hypertension

== ENCOUNTER → 2020-11-07 | Outpatient (CLI) | payer MEDICARE ==
--- NOTE | 2020-11-07 09:36 | REPMRS ---
Patient History The patient states she had a clinical breast exam in 09/2020 Baseline Mammogram Patient is postmenopausal. No known family history of cancer. Digital Woman Screen Mammo: November 07, 2020 - Exam #: [id number] Bilateral CC and MLO view(s) were taken. Technologist: Kavita Cuevas, Technologist Prior study comparison: June 05, 2018, bilateral digital mammo screening bilat, performed at [facility]. September 05, 2014, bilateral digital woman screen mammo, performed at [facility]. August 19, 2005, bilateral digital mammo screening bilat, performed at [facility]. FINDINGS: There are scattered fibroglandular densities. The Volpara volumetric breast density category is:B. There has been no change in the appearance of the mammogram from the prior studies. There is a mild amount of scattered fibroglandular density which is fairly symmetric. There is no interval development of dominant mass, architectural distortion, or grouped microcalcification suggestive of malignancy. 3-D tomosynthesis shows no additional findings. Assessment: BI-RADS/ACR category 1 mammogram. Negative Mammogram. Recommendation Routine screening mammogram of both breasts in 1 year (for women over age 40). This patient's [facility] Lifetime Breast Cancer Risk is estimated at 3.0 %. This mammogram was interpreted with the aid of an FDA-approved computer-aided dectection system. Electronically Signed By: Aquiles Nogueira MD 11/07/20 0955
--- NOTE | 2020-11-07 10:01 | DEXAMM ---
INDICATION: Z13.820 SCREENING FOR OSTEOPOROSIS. COMPARISON: None. TECHNIQUE: Bone density was measured using dual-energy x-ray absorptionmetry (DEXA). FINDINGS: AP SPINE L1-L4 BMD 1.129 g/cm2 Young Adult T-Score -0.5 Age Matched Z-Score 1.1. LT FEMUR, TOTAL BMD 0.848 g/cm2 Young Adult T-Score -1.3 Age Matched Z-Score 0.1. LT NECK BMD 0.773 g/cm2 Young Adult T-Score -1.9 Age Matched Z-Score -0.3. RT FEMUR, TOTAL BMD 0.827 g/cm2 Young Adult T-Score -1.4 Age Matched Z-Score -0.1. RT NECK BMD 0.657 g/cm2 Young Adult T-Score -2.7 Age Matched Z-Score -1.1. IMPRESSION: There is normal bone density of the spine. There is low bone density of the left hip. There is osteoporosis of the right hip. FOLLOW-UP: Recommendation for the next bone density exam: 2 years. <Electronically signed by Aquiles Nogueira > 11/07/20 0958
== END ==
LOC: M WHC 07:27
PROVIDERS: ATTEND Nurse Practitioner Family
DX: Z12.31 Encounter for screening mammogram for malignant neoplasm of breast (principal); Z13.820 Encounter for screening for osteoporosis

== ENCOUNTER → 2021-02-13 | Outpatient (REF) | payer MEDICARE ==
[2021-02-13 12:58] LABS: ALBUMIN 3.5 GM/DL (3.2-5.2); BILIRUBIN,TOTAL 0.6 MG/DL (0.2-1.0); CALCIUM LEVEL 9.3 MG/DL (8.8-10.2); CHOLESTEROL RISK RATIO 3.35 (<5); CREATININE FOR GFR 1.12 MG/DL (0.55-1.30); FREE T4 1.56 NG/DL (0.76-1.46); GLOMERULAR FILTRATION RATE 51.5 (>45); POTASSIUM SERUM 4.3 MEQ/L (3.5-5.1); THYROID STIMULATING HORMONE 2.19 uIU/ML (0.358-3.740); TOTAL 25(OH) VITAMIN D 33.4 NG/ML (30.0-100.0); TOTAL PROTEIN 6.9 GM/DL (6.4-8.2)
[2021-02-13 18:34] LABS: HEMOGLOBIN A1c 6.7 %
== END ==
LOC: M PLALAB 08:39
PROVIDERS: ATTEND Nurse Practitioner Family
DX: E11.9 Type 2 diabetes mellitus without complications (principal); E03.9 Hypothyroidism, unspecified; E78.5 Hyperlipidemia, unspecified; E55.9 Vitamin D deficiency, unspecified

== ENCOUNTER → 2021-04-30 | Outpatient (CLI) | payer MEDICARE ==
--- NOTE | 2021-04-30 12:06 | REP ---
INDICATION: CRYPTOGENIC ORGANIZING PNEUMONIA. COMPARISON: Comparison chest x-ray July 17, 2019. TECHNIQUE: Two views.. FINDINGS: Multifocal ill-defined nodular densities are again seen in the lung reyes. This has improved considerably since the July 17, 2019 study. Mild cardiomegaly is again observed. Pleural angles are sharp. No other infiltrate is appreciated. There is subtle fullness of the right mediastinum unchanged. IMPRESSION: Multiple ill-defined nodular densities in the lung reyes improved from the chest x-ray of July 17, 2019. Cardiomegaly. <Electronically signed by Aquiles Nogueira > 04/30/21 [id number]
== END ==
LOC: M RAD 10:44
PROVIDERS: ATTEND Internal Medicine Pulmonary Disease
DX: J84.116 Cryptogenic organizing pneumonia (principal)

== ENCOUNTER → 2021-05-10 | Outpatient (CLI) | payer MEDICARE ==
--- NOTE | 2021-05-10 12:09 | PFTRPT ---
Height: 63.00 Inches Weight: 272.00 Lbs BSA: 2.20 Diagnosis: J84.116 DATE: 05/10/2021 ORDERING PHYSICIAN: DANGELO MANCINI, DO [facility] Studies have excellent technical quality. Forced vital capacity is severely reduced. FEV1 is in proportion. Obstructive index is therefore normal. Expiratory limit of the flow-volume loop does suggest a predominantly restrictive impairment. Total lung capacity is markedly reduced. Residual volume is in proportion. Diffusing capacity although reduced is appropriate for alveolar volume. Hemoglobin is acceptable at 14.3. Airway resistance and conductance are normal. IMPRESSION: Moderate restrictive ventilatory impairment. Please correlate clinically. MTDD
== END ==
LOC: M CARPUL 11:11
PROVIDERS: ATTEND Internal Medicine Pulmonary Disease
DX: J84.116 Cryptogenic organizing pneumonia (principal)

== ENCOUNTER → 2021-06-13 | Outpatient (CLI) | payer MEDICARE ==
[2021-06-13 11:19] LABS: HEMOGLOBIN A1c 6.6 %
[2021-06-13 11:33] LABS: ALBUMIN 3.1 GM/DL (3.2-5.2); BILIRUBIN,TOTAL 0.6 MG/DL (0.2-1.0); CALCIUM LEVEL 8.4 MG/DL (8.8-10.2); CHOLESTEROL RISK RATIO 3.051 (<5); CREATININE FOR GFR 1.06 MG/DL (0.55-1.30); FREE T4 1.35 NG/DL (0.76-1.46); GLOMERULAR FILTRATION RATE 54.9 (>45); MALB URINE SIEMENS 7.6 MG/L; POTASSIUM SERUM 4.3 MEQ/L (3.5-5.1); THYROID STIMULATING HORMONE 6.46 uIU/ML (0.358-3.740); TOTAL 25(OH) VITAMIN D 37.9 NG/ML (30.0-100.0); TOTAL PROTEIN 6.6 GM/DL (6.4-8.2)
== END ==
LOC: M LAB 07:46
PROVIDERS: ATTEND Nurse Practitioner Family
DX: E11.9 Type 2 diabetes mellitus without complications (principal)

== ENCOUNTER → 2021-12-12 | Outpatient (CLI) | payer MEDICARE ==
[~2021-12-12] MED LIST changes: +LOSA100T45 PO; -LOSA100T50 PO
[2021-12-12 10:39] LABS: HEMOGLOBIN A1c 6.2 %
[2021-12-12 10:53] LABS: CREATININE, URINE 83.9 MG/DL; MAU/CREAT RATIO 9.5 MCG/MG (0.0-30.0)
[2021-12-12 10:54] LABS: ALBUMIN 3.2 GM/DL (3.2-5.2); BILIRUBIN,TOTAL 0.4 MG/DL (0.2-1.0); CALCIUM LEVEL 9.3 MG/DL (8.8-10.2); CHOLESTEROL RISK RATIO 3.473 (<5); CREATININE FOR GFR 1.06 MG/DL (0.55-1.30); FREE T4 1.26 NG/DL (0.76-1.46); GLOMERULAR FILTRATION RATE 54.7 (>45); POTASSIUM SERUM 4.3 MEQ/L (3.5-5.1); THYROID STIMULATING HORMONE 2.84 uIU/ML (0.358-3.740); TOTAL 25(OH) VITAMIN D 39.6 NG/ML (30.0-100.0); TOTAL PROTEIN 6.6 GM/DL (6.4-8.2)
== END ==
LOC: M PLALAB 07:47
PROVIDERS: ATTEND Nurse Practitioner Family
DX: E11.9 Type 2 diabetes mellitus without complications (principal)

== ENCOUNTER → 2022-02-26 | Outpatient (CLI) | payer MEDICARE | LOC: M WHC 13:59 | PROVIDERS: ATTEND Nurse Practitioner Family | DX: Z12.39 Encounter for other screening for malignant neoplasm of breast (principal) ==

== ENCOUNTER → 2022-05-28 | Outpatient (CLI) | payer MEDICARE | LOC: M RAD 09:03 | PROVIDERS: ATTEND Internal Medicine Pulmonary Disease | DX: J84.116 Cryptogenic organizing pneumonia (principal) ==

== ENCOUNTER → 2022-06-13 | Outpatient (CLI) | payer MEDICARE | LOC: M CARPUL 13:23 | PROVIDERS: ATTEND Internal Medicine Pulmonary Disease | DX: R06.2 Wheezing (principal) ==

== ENCOUNTER → 2022-06-14 | Outpatient (CLI) | payer MEDICARE ==
[2022-06-14 11:49] LABS: BASO # 0.1 10^3/uL (0.0-0.2); BASO % 0.6 % (0.0-1.0); EOS # 0.5 10^3/uL (0.0-0.5); EOS % 5.5 % (0.0-3.0); HEMATOCRIT 46.4 % (36.0-47.0); HEMOGLOBIN 14.4 g/dl (12.0-15.5); LYMPH % 32.2 % (24.0-44.0); MEAN CORPUSCULAR VOLUME 93.5 fl (80.0-96.0); MONO # 0.7 10^3/uL (0.0-0.8); MONO % 7.3 % (2.0-8.0); NEUTROPHILS % 53.9 % (36.0-66.0); PLATELET COUNT, AUTOMATED 269 10^3/uL (150-450); RED BLOOD COUNT 4.96 10^6/uL (4.00-5.40); WHITE BLOOD COUNT 9.3 10^3/uL (4.0-10.0)
[2022-06-14 12:31] LABS: ALBUMIN 3.5 GM/DL (3.2-5.2); BILIRUBIN,TOTAL 0.5 MG/DL (0.2-1.0); CALCIUM LEVEL 9.3 MG/DL (8.8-10.2); CHOLESTEROL RISK RATIO 3.236 (<5); CREATININE FOR GFR 1.22 MG/DL (0.55-1.30); FREE T4 1.51 NG/DL (0.76-1.46); GLOMERULAR FILTRATION RATE 46.5 (>45); POTASSIUM SERUM 4.5 MEQ/L (3.5-5.1); THYROID STIMULATING HORMONE 1.54 uIU/ML (0.358-3.740)
[2022-06-14 12:33] LABS: MAU/CREAT RATIO 4.3 MCG/MG (0.0-30.0)
[2022-06-14 13:04] LABS: TOTAL 25(OH) VITAMIN D 45.7 NG/ML (30.0-100.0)
[2022-06-14 14:14] LABS: HEMOGLOBIN A1c 6.2 %
== END ==
LOC: M PLALAB 07:45
PROVIDERS: ATTEND Nurse Practitioner Family
DX: E11.9 Type 2 diabetes mellitus without complications (principal)

== ENCOUNTER 2022-07-10 08:52 | Observation (INO) | payer MEDICARE ==
[~2022-07-10] VITALS: Ht 160 cm; Wt 112.7 kg
[2022-07-10] MEDS ORDERED: JARD1TAB3 (09:00)
[2022-07-10] MEDS ORDERED: TRUL10IN SC (09:00)
[2022-07-10] MEDS ORDERED: BUSP5TA PO (09:00)
[2022-07-10 10:23] LABS: BASO % 0.4 % (0.0-1.0); EOS # 0.6 10^3/uL (0.0-0.5); EOS % 5.7 % (0.0-3.0); HEMATOCRIT 43.4 % (36.0-47.0); HEMOGLOBIN 13.4 g/dl (12.0-15.5); LYMPH # 2.3 10^3/uL (1.5-5.0); LYMPH % 23.3 % (24.0-44.0); MEAN CORPUSCULAR HEMOGLOBIN 28.6 pg (27.0-33.0); MEAN CORPUSCULAR HGB CONC 30.9 g/dl (32.0-36.5); MEAN CORPUSCULAR VOLUME 92.5 fl (80.0-96.0); MONO # 0.8 10^3/uL (0.0-0.8); MONO % 7.5 % (2.0-8.0); NEUTROPHILS # 6.3 10^3/uL (1.5-8.5); NEUTROPHILS % 62.4 % (36.0-66.0); PLATELET COUNT, AUTOMATED 323 10^3/uL (150-450); RED BLOOD COUNT 4.69 10^6/uL (4.00-5.40)
[2022-07-10 11:12] LABS: BILIRUBIN,DIRECT 0.1 MG/DL (0.0-0.2); BILIRUBIN,TOTAL 0.4 MG/DL (0.2-1.0); CALCIUM LEVEL 9.6 MG/DL (8.8-10.2); CREATININE FOR GFR 1.14 MG/DL (0.55-1.30); GLOMERULAR FILTRATION RATE 50.3 (>45); POTASSIUM SERUM 4.2 MEQ/L (3.5-5.1); TOTAL PROTEIN 7.1 GM/DL (6.4-8.2)
[2022-07-10] MEDS ORDERED: methylPREDNISolone 125MG 2ML VIAL IV ONE (12:25)
[2022-07-10] MEDS: COMBIVENT RESPIMAT 100-20MCG INHALER 4GM INH SCH ×3 (12:49→13:22)
[2022-07-10 13:57] VITALS: O2SAT 85
[2022-07-10] MEDS ORDERED: ISOVUE-370 76% 100ML VIAL As Ordered ONE (14:09)
[2022-07-10] MEDS: IPRATROPIUM 0.5MG/ALBUTEROL 2.5MG INH SOL UD 3ML (DUONEB) NEB PRN ×3 (14:20→16:00)
[2022-07-10 14:32] LABS: THYROID STIMULATING HORMONE 2.56 uIU/ML (0.358-3.740); THYROXINE (T4) 12.9 UG/DL (4.5-12.0)
[2022-07-10] MEDS ORDERED: IPRATROPIUM 0.5MG/ALBUTEROL 2.5MG INH SOL UD 3ML (DUONEB) NEB PRN (16:00)
[2022-07-10 16:08] LABS: CK-MB VALUE MASS < 1.0 NG/ML (<3.6); CPK CREATINE PHOSPHOKINASE 38 U/L (26-192); MB/CK RELATIVE INDEX 2.63 (< OR =4)
[2022-07-10] MEDS ORDERED: GLUCAGON INJ 1MG VIAL SC PRN (16:15)
[2022-07-10] MEDS ORDERED: DEXTROSE 50% 50 ML SYRINGE IV PRN (16:15)
[2022-07-10] MEDS ORDERED: GLUCOSE 4GM CHEW TABLET PO PRN (16:15)
[2022-07-10] MEDS: INSULIN LISPRO (NovoLOG) PER UNIT SC SCH ×2 (18:34→21:31)
[2022-07-10] MEDS: IPRATROPIUM 0.5MG/ALBUTEROL 2.5MG INH SOL UD 3ML (DUONEB) NEB SCH (19:07)
[2022-07-10] MEDS ORDERED: LEVO-91 PO (19:41)
[2022-07-10] MEDS ORDERED: LEXA1TAB2 PO (19:41)
[2022-07-10] MEDS ORDERED: VITA100066 PO (19:41)
[2022-07-10] MEDS ORDERED: CHOL100012 PO (19:41)
[2022-07-10] MEDS ORDERED: LOSA50TA28 PO (19:41)
[2022-07-10] MEDS ORDERED: NYST1POW9 TOP (19:41)
[2022-07-10] MEDS ORDERED: HOME MED LIST COMPLETE! XX SCH (19:45)
[2022-07-10] MEDS: ATORVASTATIN 20 MG TAB PO SCH (21:27)
[2022-07-10] MEDS: LOSARTAN 50MG TABLET PO SCH (21:28)
[2022-07-10] MEDS: busPIRone 5 MG TAB PO SCH (21:29)
[2022-07-10] MEDS: LEVEMIR (INSULIN DETEMIR) 1 UNITS/0.01ML SC SCH (21:30)
[2022-07-11] MEDS: CLARITHROMYCIN 250 MG TAB PO SCH ×3 (00:24→20:58)
[2022-07-11] MEDS: IPRATROPIUM 0.5MG/ALBUTEROL 2.5MG INH SOL UD 3ML (DUONEB) NEB SCH ×3 (02:00→13:18)
[2022-07-11] MEDS: LEVOTHYROXINE 112MCG TABLET (0.112MG) PO SCH (06:28)
[2022-07-11 06:50] LABS: HEMATOCRIT 39.7 % (36.0-47.0); HEMOGLOBIN 12.3 g/dl (12.0-15.5); MEAN CORPUSCULAR HEMOGLOBIN 28.1 pg (27.0-33.0); MEAN CORPUSCULAR VOLUME 90.6 fl (80.0-96.0); PLATELET COUNT, AUTOMATED 297 10^3/uL (150-450); RED BLOOD COUNT 4.38 10^6/uL (4.00-5.40); WHITE BLOOD COUNT 7.9 10^3/uL (4.0-10.0)
[2022-07-11 07:11] LABS: CALCIUM LEVEL 8.9 MG/DL (8.8-10.2); CREATININE FOR GFR 1.14 MG/DL (0.55-1.30); GLOMERULAR FILTRATION RATE 50.3 (>45); POTASSIUM SERUM 4.6 MEQ/L (3.5-5.1)
[2022-07-11] MEDS ORDERED: methylPREDNISolone 40MG 1ML VIAL IV SCH (09:00)
[2022-07-11] MEDS ORDERED: VITAMIN D 1,000 INTERNATIONAL UNITS TABLET PO SCH ×2 (09:00→21:00)
[2022-07-11] MEDS: LOSARTAN 50MG TABLET PO SCH ×2 (09:32→20:57)
[2022-07-11] MEDS: busPIRone 5 MG TAB PO SCH ×3 (09:34→20:58)
[2022-07-11] MEDS: ESCITALOPRAM OXALATE 10 MG TAB (LEXAPRO) PO SCH (09:34)
[2022-07-11] MEDS: TIMOLOL MALEATE 0.25% OPHTH SOLN 5 ML OU SCH ×2 (09:35→20:59)
[2022-07-11] MEDS: LEVEMIR (INSULIN DETEMIR) 1 UNITS/0.01ML SC SCH ×2 (09:35→20:58)
[2022-07-11] MEDS: ENOXAPARIN 40MG/0.4ML SYRINGE (J1650 PER 10MG) SC SCH (09:36)
[2022-07-11] MEDS: INSULIN LISPRO (NovoLOG) PER UNIT SC SCH ×4 (10:19→21:00)
[2022-07-11 16:15] VITALS: BP 152/80
[2022-07-11] MEDS ORDERED: ALBUTEROL 90 MCG/ACT 8GM HFA INHALER INH PRN (18:10)
[2022-07-11] MEDS: SYMBICORT 160/4.5MCG INHALER 6GM INH SCH (20:00)
[2022-07-11] MEDS: ATORVASTATIN 20 MG TAB PO SCH (20:58)
[2022-07-11] MEDS ORDERED: LATANOPROST 0.005% OPHTH SOLN 2.5 ML OU SCH (21:00)
[2022-07-11 22:00] VITALS: BP 130/84
[2022-07-12 06:00] VITALS: BP 124/74
[2022-07-12] MEDS: LEVOTHYROXINE 112MCG TABLET (0.112MG) PO SCH (06:29)
[2022-07-12] MEDS: SYMBICORT 160/4.5MCG INHALER 6GM INH SCH (07:47)
[2022-07-12] MEDS ORDERED: methylPREDNISolone 125MG 2ML VIAL IV SCH (09:00)
[2022-07-12] MEDS ORDERED: FUROSEMIDE 20 MG TAB PO SCH (09:00)
[2022-07-12] MEDS: INSULIN LISPRO (NovoLOG) PER UNIT SC SCH ×2 (09:41→12:22)
[2022-07-12] MEDS: LEVEMIR (INSULIN DETEMIR) 1 UNITS/0.01ML SC SCH (09:41)
[2022-07-12] MEDS: ESCITALOPRAM OXALATE 10 MG TAB (LEXAPRO) PO SCH (09:42)
[2022-07-12] MEDS: busPIRone 5 MG TAB PO SCH (09:42)
[2022-07-12 09:43] VITALS: BP 124/74
[2022-07-12] MEDS: TIMOLOL MALEATE 0.25% OPHTH SOLN 5 ML OU SCH (09:43)
[2022-07-12] MEDS: LOSARTAN 50MG TABLET PO SCH (09:43)
[2022-07-12] MEDS: ENOXAPARIN 40MG/0.4ML SYRINGE (J1650 PER 10MG) SC SCH (09:43)
[2022-07-12] MEDS: CLARITHROMYCIN 250 MG TAB PO SCH (09:44)
[2022-07-12] MEDS ORDERED: PRED10TA2 PO (10:22)
== END 2022-07-12 13:20 | disposition home or self-care (01) ==
LOC: M ED 08:52 → M ED INP 16:00 → ENRESERV 07-11 13:32 → M MS5PR 07-11 16:15
PROVIDERS: ADMIT Internal Medicine; ATTEND Internal Medicine
DX: J45.41 Moderate persistent asthma with (acute) exacerbation (principal); J84.116 Cryptogenic organizing pneumonia; J96.01 Acute respiratory failure with hypoxia; R91.1 Solitary pulmonary nodule; R59.0 Localized enlarged lymph nodes; Z20.828 Contact with and (suspected) exposure to other viral communicable diseases; G47.33 Obstructive sleep apnea (adult) (pediatric); F32.A Depression, unspecified; F41.9 Anxiety disorder, unspecified; E03.9 Hypothyroidism, unspecified; I10 Essential (primary) hypertension; E78.5 Hyperlipidemia, unspecified; E11.9 Type 2 diabetes mellitus without complications; Z79.899 Other long term (current) drug therapy; Z79.2 Long term (current) use of antibiotics; Z79.84 Long term (current) use of oral hypoglycemic drugs; Z79.51 Long term (current) use of inhaled steroids; Z88.8 Allergy status to other drugs, medicaments and biological substances; Z88.5 Allergy status to narcotic agent
CPT/HCPCS: 36415; 71046; 71275; 80048; 80076; 82550; 82553; 83880; 84145; 84436; 84443; 84484; 85025; 85027; 87486; 87581; 87633; 87798; 93005; 93041; 94640; 94660; 94760; 96372; 96374; 96376; 99285; G0378; J1650; J1815; J2920; J2930; Q9967

== ENCOUNTER → 2022-10-18 | Outpatient (CLI) | payer MEDICARE ==
[~2022-10-18] MED LIST changes: +BUSP5TA PO; +CHOL100012 PO; +JARD1TAB3; +LEVO-91 PO; +LEXA1TAB2 PO; +LOSA50TA28 PO; +NYST1POW9 TOP; +PRED10TA2 PO; +TRUL10IN SC; +VITA100066 PO
== END ==
LOC: M RAD 08:37
PROVIDERS: ATTEND Internal Medicine Pulmonary Disease
DX: J84.116 Cryptogenic organizing pneumonia (principal)

== ENCOUNTER → 2022-12-20 | Outpatient (CLI) | payer MEDICARE ==
[~2022-12-20] MED LIST changes: -BETI1SOL OU; +COZA100T3 PO; +TIMO5DRO5 OU
[2022-12-20 10:48] LABS: BASO # 0.1 10^3/uL (0.0-0.2); BASO % 0.6 % (0.0-1.0); EOS # 0.7 10^3/uL (0.0-0.5); EOS % 7.3 % (0.0-3.0); HEMATOCRIT 47.6 % (36.0-47.0); HEMOGLOBIN 14.7 g/dl (12.0-15.5); LYMPH # 2.9 10^3/uL (1.5-5.0); LYMPH % 28.5 % (24.0-44.0); MEAN CORPUSCULAR HEMOGLOBIN 28.8 pg (27.0-33.0); MEAN CORPUSCULAR HGB CONC 30.9 g/dl (32.0-36.5); MEAN CORPUSCULAR VOLUME 93.3 fl (80.0-96.0); MONO # 0.7 10^3/uL (0.0-0.8); NEUTROPHILS # 5.7 10^3/uL (1.5-8.5); NEUTROPHILS % 56.3 % (36.0-66.0); PLATELET COUNT, AUTOMATED 296 10^3/uL (150-450); WHITE BLOOD COUNT 10.1 10^3/uL (4.0-10.0)
[2022-12-20 11:12] LABS: CREATININE, URINE 79.6 MG/DL; MALB URINE SIEMENS < 3.0 MG/L; MAU/CREAT RATIO 3.7 MCG/MG (0.0-30.0)
[2022-12-20 11:16] LABS: ALBUMIN 3.6 G/DL (3.2-5.2); BILIRUBIN,TOTAL 0.5 MG/DL (0.3-1.2); CALCIUM LEVEL 9.5 MG/DL (8.3-10.6); CHOLESTEROL RISK RATIO 3.43 (<5); CREATININE FOR GFR 1.04 MG/DL (0.55-1.30); GLOMERULAR FILTRATION RATE 55.8 (>39); HDL CHOLESTEROL 37.9 MG/DL (>40); LDL CHOLESTEROL 64.5 MG/DL (<100); NON-HDL-C 92.1 MG/DL; POTASSIUM SERUM 4.4 MMOL/L (3.5-5.1); THYROID STIMULATING HORMONE 5.812 uIU/ML (0.55-4.78); TOTAL 25(OH) VITAMIN D 32.5 NG/ML (20.0-100.0); TOTAL PROTEIN 6.6 G/DL (5.7-8.2)
[2022-12-20 11:17] LABS: FREE T4 1.28 NG/DL (0.89-1.76)
== END ==
LOC: M PLALAB 07:58
PROVIDERS: ATTEND Nurse Practitioner Family
DX: E11.9 Type 2 diabetes mellitus without complications (principal); I10 Essential (primary) hypertension; E78.5 Hyperlipidemia, unspecified; E55.9 Vitamin D deficiency, unspecified; E03.9 Hypothyroidism, unspecified

== ENCOUNTER → 2023-02-27 | Outpatient (CLI) | payer MEDICARE ==
[~2023-02-27] MED LIST changes: -LOSA100T45 PO; +LOSA100T46 PO
== END ==
LOC: M WHC 07:37
PROVIDERS: ATTEND Nurse Practitioner Family
DX: Z12.31 Encounter for screening mammogram for malignant neoplasm of breast (principal); M81.0 Age-related osteoporosis without current pathological fracture

== ENCOUNTER → 2023-03-06 | Outpatient (CLI) | payer MEDICARE | LOC: M WHC 09:10 | PROVIDERS: ATTEND Nurse Practitioner Family | DX: M81.0 Age-related osteoporosis without current pathological fracture (principal) ==

== ENCOUNTER → 2023-05-23 | Outpatient (CLI) | payer MEDICARE ==
[~2023-05-23] MED LIST changes: -COZA100T3 PO; +LOSA-530 PO
[2023-05-23 10:13] LABS: BASO % 0.5 % (0.0-1.0); EOS # 0.5 10^3/uL (0.0-0.5); EOS % 5.7 % (0.0-3.0); HEMATOCRIT 44.8 % (36.0-47.0); HEMOGLOBIN 13.7 g/dl (12.0-15.5); LYMPH # 2.3 10^3/uL (1.5-5.0); MEAN CORPUSCULAR HEMOGLOBIN 28.7 pg (27.0-33.0); MEAN CORPUSCULAR HGB CONC 30.6 g/dl (32.0-36.5); MEAN CORPUSCULAR VOLUME 93.9 fl (80.0-96.0); MONO # 0.5 10^3/uL (0.0-0.8); MONO % 5.5 % (2.0-8.0); NEUTROPHILS # 5.1 10^3/uL (1.5-8.5); NEUTROPHILS % 60.9 % (36.0-66.0); PLATELET COUNT, AUTOMATED 250 10^3/uL (150-450); RED BLOOD COUNT 4.77 10^6/uL (4.00-5.40); WHITE BLOOD COUNT 8.4 10^3/uL (4.0-10.0)
[2023-05-23 10:44] LABS: FREE T4 1.14 NG/DL (0.89-1.76); THYROID STIMULATING HORMONE 10.917 uIU/ML (0.55-4.78)
== END ==
LOC: M PLALAB 07:39
PROVIDERS: ATTEND Nurse Practitioner Family
DX: E03.9 Hypothyroidism, unspecified (principal)

== ENCOUNTER → 2023-06-23 | Outpatient (CLI) | payer MEDICARE ==
[2023-06-23 11:27] LABS: BASO # 0.1 10^3/uL (0.0-0.2); BASO % 0.6 % (0.0-1.0); EOS # 0.5 10^3/uL (0.0-0.5); EOS % 5.4 % (0.0-3.0); HEMATOCRIT 42.3 % (36.0-47.0); LYMPH # 2.4 10^3/uL (1.5-5.0); LYMPH % 25.7 % (24.0-44.0); MEAN CORPUSCULAR HEMOGLOBIN 28.8 pg (27.0-33.0); MEAN CORPUSCULAR HGB CONC 30.7 g/dl (32.0-36.5); MEAN CORPUSCULAR VOLUME 93.8 fl (80.0-96.0); MONO # 0.7 10^3/uL (0.0-0.8); MONO % 7.6 % (2.0-8.0); NEUTROPHILS # 5.7 10^3/uL (1.5-8.5); NEUTROPHILS % 60.2 % (36.0-66.0); PLATELET COUNT, AUTOMATED 279 10^3/uL (150-450); RED BLOOD COUNT 4.51 10^6/uL (4.00-5.40); WHITE BLOOD COUNT 9.4 10^3/uL (4.0-10.0)
[2023-06-24 04:12] LABS: MAU/CREAT RATIO 4.5 MCG/MG (0.0-30.0)
[2023-06-24 05:29] LABS: ALBUMIN 3.1 G/DL (3.2-5.2); ALKALINE PHOSPHATASE 98 U/L (46-116); ALT/SGPT 9 U/L (7.0-40); AST/SGOT < 8 U/L (<34); BILIRUBIN,TOTAL 0.5 MG/DL (0.3-1.2); BLOOD UREA NITROGEN 22 MG/DL (9-23); CALCIUM LEVEL 8.8 MG/DL (8.3-10.6); CARBON DIOXIDE LEVEL 31 MMOL/L (20-31); CHLORIDE LEVEL 105 MMOL/L (98-107); CHOLESTEROL LEVEL 119 MG/DL (<200); CHOLESTEROL RISK RATIO 3.45 (<5); CREATININE FOR GFR 1.09 MG/DL (0.55-1.30); FREE T4 1.35 NG/DL (0.89-1.76); GLOMERULAR FILTRATION RATE 52.8 (>39); GLUCOSE, FASTING 117 MG/DL (74-106); HDL CHOLESTEROL 34.4 MG/DL (>40); LDL CHOLESTEROL 61.4 MG/DL (<100); NON-HDL-C 84.6 MG/DL; POTASSIUM SERUM 4.4 MMOL/L (3.5-5.1); SODIUM LEVEL 142 MMOL/L (136-145); THYROID STIMULATING HORMONE 4.662 uIU/ML (0.55-4.78); TOTAL 25(OH) VITAMIN D 51.9 NG/ML (20.0-100.0); TOTAL PROTEIN 6.3 G/DL (5.7-8.2); TRIGLYCERIDES LEVEL 116 MG/DL (<150)
== END ==
LOC: M PLALAB 08:06
PROVIDERS: ATTEND Nurse Practitioner Family
DX: E78.5 Hyperlipidemia, unspecified (principal)

== ENCOUNTER → 2023-07-08 | Outpatient (CLI) | payer MEDICARE | LOC: M RAD 10:55 | PROVIDERS: ATTEND Nurse Practitioner Family | DX: E03.9 Hypothyroidism, unspecified (principal) ==

== ENCOUNTER → 2023-11-19 | Outpatient (CLI) | payer MEDICARE | LOC: M LAB 07:58 | PROVIDERS: ATTEND Internal Medicine Pulmonary Disease | DX: J84.116 Cryptogenic organizing pneumonia (principal) ==

== ENCOUNTER → 2023-12-24 | Outpatient (CLI) | payer MEDICARE ==
[2023-12-24 10:59] LABS: BASO # 0.1 10^3/uL (0.0-0.2); BASO % 0.6 % (0.0-1.0); EOS # 0.8 10^3/uL (0.0-0.5); EOS % 7.6 % (0.0-3.0); HEMATOCRIT 46.9 % (36.0-47.0); HEMOGLOBIN 14.5 g/dl (12.0-15.5); LYMPH # 2.9 10^3/uL (1.5-5.0); LYMPH % 27.7 % (24.0-44.0); MEAN CORPUSCULAR HEMOGLOBIN 28.8 pg (27.0-33.0); MEAN CORPUSCULAR HGB CONC 30.9 g/dl (32.0-36.5); MEAN CORPUSCULAR VOLUME 93.1 fl (80.0-96.0); MONO # 0.8 10^3/uL (0.0-0.8); MONO % 7.5 % (2.0-8.0); NEUTROPHILS % 56.3 % (36.0-66.0); PLATELET COUNT, AUTOMATED 277 10^3/uL (150-450); RED BLOOD COUNT 5.04 10^6/uL (4.00-5.40); WHITE BLOOD COUNT 10.6 10^3/uL (4.0-10.0)
[2023-12-24 11:28] LABS: ALBUMIN 3.2 G/DL (3.2-5.2); BILIRUBIN,TOTAL 0.4 MG/DL (0.3-1.2); CALCIUM LEVEL 9.8 MG/DL (8.3-10.6); CHOLESTEROL RISK RATIO 4.56 (<5); CREATININE FOR GFR 1.11 MG/DL (0.55-1.30); GLOMERULAR FILTRATION RATE 51.6 (>39); HDL CHOLESTEROL 30.9 MG/DL (>40); LDL CHOLESTEROL 75.3 MG/DL (<100); NON-HDL-C 110.1 MG/DL; POTASSIUM SERUM 4.6 MMOL/L (3.5-5.1); TOTAL PROTEIN 6.5 G/DL (5.7-8.2)
[2023-12-24 11:30] LABS: FREE T4 1.33 NG/DL (0.89-1.76); THYROID STIMULATING HORMONE 5.274 uIU/ML (0.55-4.78); TOTAL 25(OH) VITAMIN D 42.3 NG/ML (20.0-100.0)
[2023-12-24 11:32] LABS: HEMOGLOBIN A1c 7.2 % (4.0-6.0)
[2023-12-24 12:05] LABS: CREATININE, URINE 80.5 MG/DL; MALB URINE SIEMENS < 3.0 MG/L; MAU/CREAT RATIO 3.7 MCG/MG (0.0-30.0)
== END ==
LOC: M PLALAB 07:45
PROVIDERS: ATTEND Nurse Practitioner Family
DX: E11.9 Type 2 diabetes mellitus without complications (principal); I10 Essential (primary) hypertension

== ENCOUNTER 2024-01-03 09:52 | Emergency (ER) | payer MEDICARE ==
[~2024-01-03] VITALS: Ht 160 cm; Wt 117.3 kg
[2024-01-03] MEDS ORDERED: CALC500C16 PO (10:09)
[2024-01-03] MEDS ORDERED: LEVO137T2 (10:09)
[2024-01-03 11:39] LABS: BASO % 0.3 % (0.0-1.0); EOS # 0.7 10^3/uL (0.0-0.5); EOS % 8.1 % (0.0-3.0); HEMATOCRIT 43.6 % (36.0-47.0); HEMOGLOBIN 13.9 g/dl (12.0-15.5); LYMPH # 1.9 10^3/uL (1.5-5.0); LYMPH % 21.2 % (24.0-44.0); MEAN CORPUSCULAR HEMOGLOBIN 28.7 pg (27.0-33.0); MEAN CORPUSCULAR HGB CONC 31.9 g/dl (32.0-36.5); MEAN CORPUSCULAR VOLUME 89.9 fl (80.0-96.0); MONO # 0.5 10^3/uL (0.0-0.8); MONO % 5.4 % (2.0-8.0); NEUTROPHILS # 5.9 10^3/uL (1.5-8.5); NEUTROPHILS % 64.7 % (36.0-66.0); PLATELET COUNT, AUTOMATED 262 10^3/uL (150-450); RED BLOOD COUNT 4.85 10^6/uL (4.00-5.40); WHITE BLOOD COUNT 9.1 10^3/uL (4.0-10.0)
[2024-01-03] MEDS: NORCO, ANEXSIA 5/325MG TABLET (HYDROcodone/ACETAMINOPHEN) PO ONE (12:06)
[2024-01-03 12:19] LABS: ALBUMIN 3.1 G/DL (3.2-5.2); ALKALINE PHOSPHATASE 83 U/L (46-116); ALT/SGPT 14 U/L (7.0-40); AST/SGOT 9 U/L (<34); BILIRUBIN,TOTAL 0.3 MG/DL (0.3-1.2); BLOOD UREA NITROGEN 16 MG/DL (9-23); CALCIUM LEVEL 8.6 MG/DL (8.3-10.6); CARBON DIOXIDE LEVEL 31 MMOL/L (20-31); CHLORIDE LEVEL 106 MMOL/L (98-107); CREATININE FOR GFR 0.84 MG/DL (0.55-1.30); GLOMERULAR FILTRATION RATE > 60.0 (>39); GLUCOSE, FASTING 155 MG/DL (74-106); POTASSIUM SERUM 4.2 MMOL/L (3.5-5.1); SODIUM LEVEL 142 MMOL/L (136-145); TOTAL PROTEIN 6.2 G/DL (5.7-8.2)
[2024-01-03] MEDS: ACETAMINOPHEN TAB 650MG DOSE (2X325MG) PO ONE (12:29)
[2024-01-03] MEDS: NS 500 ML IV ONE (12:30)
[2024-01-03] MEDS ORDERED: ISOVUE-370 76% 100ML VIAL As Ordered ONE (12:40)
[2024-01-03 14:50] VITALS: BP 140/76; TEMP 96.5; O2SAT 90
[2024-01-03] MEDS ORDERED: CLAR500T97 PO (15:09)
[2024-01-03] MEDS ORDERED: HYDR-3713 PO (15:14)
== END 2024-01-03 15:27 | disposition home or self-care (01) ==
LOC: M ED 09:52
DX: J18.9 Pneumonia, unspecified organism (principal); E11.9 Type 2 diabetes mellitus without complications; I10 Essential (primary) hypertension; E78.5 Hyperlipidemia, unspecified; Z88.8 Allergy status to other drugs, medicaments and biological substances; Z79.1 Long term (current) use of non-steroidal anti-inflammatories (NSAID); Z79.899 Other long term (current) drug therapy
CPT/HCPCS: 71046; 71275; 80053; 85025; 85379; 96360; 96361; 99284; Q9967

== ENCOUNTER → 2024-03-05 | Outpatient (CLI) | payer MEDICARE ==
[~2024-03-05] MED LIST changes: +CALC500C16 PO; +HYDR-3713 PO; +LEVO137T2; +ONDA-282 PO; -ONDA4TAB6 PO
[2024-03-05 10:08] LABS: BASO # 0.1 10^3/uL (0.0-0.2); BASO % 0.7 % (0.0-1.0); EOS # 0.4 10^3/uL (0.0-0.5); EOS % 5.5 % (0.0-3.0); HEMATOCRIT 45.2 % (36.0-47.0); HEMOGLOBIN 13.8 g/dl (12.0-15.5); LYMPH # 2.3 10^3/uL (1.5-5.0); LYMPH % 30.4 % (24.0-44.0); MEAN CORPUSCULAR HEMOGLOBIN 28.5 pg (27.0-33.0); MEAN CORPUSCULAR HGB CONC 30.5 g/dl (32.0-36.5); MEAN CORPUSCULAR VOLUME 93.4 fl (80.0-96.0); MONO # 0.7 10^3/uL (0.0-0.8); NEUTROPHILS # 4.1 10^3/uL (1.5-8.5); NEUTROPHILS % 53.9 % (36.0-66.0); PLATELET COUNT, AUTOMATED 225 10^3/uL (150-450); RED BLOOD COUNT 4.84 10^6/uL (4.00-5.40); WHITE BLOOD COUNT 7.7 10^3/uL (4.0-10.0)
[2024-03-05 10:22] LABS: HEMOGLOBIN A1c 7.8 % (4.0-6.0)
[2024-03-05 10:24] LABS: ALBUMIN 3.4 G/DL (3.2-5.2); ALKALINE PHOSPHATASE 111 U/L (46-116); ALT/SGPT 23 U/L (7.0-40); AST/SGOT < 8 U/L (<34); BILIRUBIN,TOTAL 0.5 MG/DL (0.3-1.2); BLOOD UREA NITROGEN 28 MG/DL (9-23); CALCIUM LEVEL 9.6 MG/DL (8.3-10.6); CARBON DIOXIDE LEVEL 30 MMOL/L (20-31); CHLORIDE LEVEL 110 MMOL/L (98-107); CREATININE FOR GFR 1.02 MG/DL (0.55-1.30); GLOMERULAR FILTRATION RATE 56.9 (>39); GLUCOSE, FASTING 149 MG/DL (74-106); POTASSIUM SERUM 4.8 MMOL/L (3.5-5.1); SODIUM LEVEL 144 MMOL/L (136-145); TOTAL PROTEIN 6.1 G/DL (5.7-8.2)
[2024-03-05 10:26] LABS: THYROID STIMULATING HORMONE 3.964 uIU/ML (0.55-4.78)
[2024-03-05 10:27] LABS: FREE T4 1.48 NG/DL (0.89-1.76)
== END ==
LOC: M PLALAB 07:52
PROVIDERS: ATTEND Nurse Practitioner Family
DX: E03.9 Hypothyroidism, unspecified (principal); E11.9 Type 2 diabetes mellitus without complications; E55.9 Vitamin D deficiency, unspecified

== ENCOUNTER → 2024-04-14 | Outpatient (CLI) | payer MEDICARE | LOC: M WHC 07:46 | PROVIDERS: ATTEND Nurse Practitioner Family | DX: Z12.31 Encounter for screening mammogram for malignant neoplasm of breast (principal) ==

== ENCOUNTER → 2024-04-15 | Outpatient (CLI) | payer MEDICARE | LOC: M PLAIMG 10:49 | PROVIDERS: ATTEND Internal Medicine Pulmonary Disease | DX: R91.8 Other nonspecific abnormal finding of lung field (principal) ==

== ENCOUNTER → 2024-07-13 | Outpatient (CLI) | payer MEDICARE ==
[~2024-07-13] MED LIST changes: +NYST1POW3 TOP; -NYST1POW9 TOP
== END ==
LOC: M RAD 08:21
PROVIDERS: ATTEND Internal Medicine Pulmonary Disease
DX: J84.116 Cryptogenic organizing pneumonia (principal)

== ENCOUNTER → 2024-08-19 | Outpatient (CLI) | payer MEDICARE ==
[2024-08-19 11:22] LABS: BASO # 0.1 10^3/uL (0.0-0.2); BASO % 0.5 % (0.0-1.0); EOS # 0.8 10^3/uL (0.0-0.5); EOS % 8.4 % (0.0-3.0); HEMATOCRIT 47.2 % (36.0-47.0); HEMOGLOBIN 14.7 g/dl (12.0-15.5); LYMPH # 2.3 10^3/uL (1.5-5.0); LYMPH % 22.6 % (24.0-44.0); MEAN CORPUSCULAR HEMOGLOBIN 29.2 pg (27.0-33.0); MEAN CORPUSCULAR HGB CONC 31.1 g/dl (32.0-36.5); MEAN CORPUSCULAR VOLUME 93.7 fl (80.0-96.0); MONO # 0.7 10^3/uL (0.0-0.8); MONO % 6.7 % (2.0-8.0); NEUTROPHILS # 6.2 10^3/uL (1.5-8.5); NEUTROPHILS % 61.4 % (36.0-66.0); PLATELET COUNT, AUTOMATED 256 10^3/uL (150-450); RED BLOOD COUNT 5.04 10^6/uL (4.00-5.40)
[2024-08-19 11:36] LABS: HEMOGLOBIN A1c 6.4 % (4.0-6.0)
[2024-08-19 11:48] LABS: ALBUMIN 3.3 G/DL (3.2-5.2); BILIRUBIN,TOTAL 0.4 MG/DL (0.3-1.2); CALCIUM LEVEL 9.5 MG/DL (8.3-10.6); CREATININE FOR GFR 1.08 MG/DL (0.55-1.30); GLOMERULAR FILTRATION RATE 53.2 (>39); POTASSIUM SERUM 4.3 MMOL/L (3.5-5.1); THYROID STIMULATING HORMONE 3.363 uIU/ML (0.55-4.78); TOTAL PROTEIN 6.5 G/DL (5.7-8.2)
[2024-08-19 11:49] LABS: FREE T4 1.59 NG/DL (0.89-1.76)
== END ==
LOC: M PLALAB 07:34
PROVIDERS: ATTEND Nurse Practitioner Family
DX: E11.9 Type 2 diabetes mellitus without complications (principal)

== ENCOUNTER → 2025-04-21 | Outpatient (CLI) | payer MEDICARE ==
[~2025-04-21] MED LIST changes: +METF-1113 PO; -METF-723 PO
== END ==
LOC: M WHC 12:15
PROVIDERS: ATTEND Nurse Practitioner Family
DX: Z12.31 Encounter for screening mammogram for malignant neoplasm of breast (principal); M81.0 Age-related osteoporosis without current pathological fracture; M85.89 Other specified disorders of bone density and structure, multiple sites; R92.313 Mammographic fatty tissue density, bilateral breasts

== ENCOUNTER 2025-06-17 22:14 | Observation (INO) | payer MEDICARE ==
[~2025-06-17] VITALS: Ht 157.5 cm; Wt 115.5 kg
[~2025-06-17 22:14] MED LIST changes: -LEVO137T2; +LEVO137T2 PO; -METF-1113 PO; +METF-1201 PO
[2025-06-18] VITALS (7 sets, daily range): BP systolic 142–156; BP diastolic 68–82; TEMP 97–97.9; O2SAT 92–99
[2025-06-18 00:17] LABS: BASO # 0.0 10^3/uL (0.0-0.2); BASO % 0.2 % (0.0-1.0); EOS # 0.0 10^3/uL (0.0-0.5); EOS % 0.1 % (0.0-3.0); LYMPH # 2.3 10^3/uL (1.5-5.0); LYMPH % 12.7 % (24.0-44.0); MONO # 1.8 10^3/uL (0.0-0.8); MONO % 10.1 % (2.0-8.0); NEUTROPHILS # 13.6 10^3/uL (1.5-8.5); NEUTROPHILS % 76.3 % (36.0-66.0); PLATELET COUNT, AUTOMATED 241 10^3/uL (150-450)
[2025-06-18 00:36] LABS: ALT/SGPT 22.0 U/L (7.0-40); AST/SGOT 13.0 U/L (<34); CALCIUM LEVEL 8.6 MG/DL (8.3-10.6); CARBON DIOXIDE LEVEL 23.0 MMOL/L (20-31); CHLORIDE LEVEL 103.0 MMOL/L (98-107); CREATININE FOR GFR 1.19 MG/DL (0.55-1.30); GLOMERULAR FILTRATION RATE 48.6 (>39); POTASSIUM SERUM 4.3 MMOL/L (3.5-5.1); SODIUM LEVEL 140.0 MMOL/L (136-145)
[2025-06-18 00:53] LABS: KETONE, URINE AUTO RFX NEGATIVE (NEGATIVE); LEUKOCYTE ESTERASE UR AUTO RFX 2+ (NEGATIVE); NITRITE, URINE AUTO RFX NEGATIVE (NEGATIVE); RBC, URINE AUTO RFX 24 /HPF (0-3); SQUAM EPITHELIAL CELL UR AURFX 1 /HPF (0-6); WBC, URINE AUTO RFX TNTC /HPF (0-3)
[2025-06-18 01:48] LABS: CK-MB VALUE MASS < 1.0 NG/ML (<3.6)
[2025-06-18 01:50] LABS: CPK CREATINE PHOSPHOKINASE 68 U/L (34-145)
[2025-06-18] MEDS: NS (Normal Saline) 0.9% 1,000 ML IV ONE (03:31)
[2025-06-18] MEDS: cefTRIAXone SOD 1 GM in DEXTROSE 5% (D5W) ADV/MINI-BAG 50 ML IV ONE (03:46)
[2025-06-18] MEDS ORDERED: GLUCAGON INJ 1 MG VIAL SC PRN (04:30)
[2025-06-18] MEDS ORDERED: DEXTROSE 50% 50 ML SYRINGE IV PRN (04:30)
[2025-06-18] MEDS ORDERED: GLUCOSE 4 GM CHEW PO PRN (04:30)
[2025-06-18] MEDS: NS (Normal Saline) 0.9% 1,000 ML IV SCH (04:51)
[2025-06-18] MEDS ORDERED: SITA50TAB PO (06:30)
[2025-06-18] MEDS ORDERED: TIMO5DRO4 OU (06:30)
[2025-06-18] MEDS ORDERED: TRUL0.5I SC (06:30)
[2025-06-18] MEDS ORDERED: JARD1TAB3 PO (06:30)
[2025-06-18] MEDS ORDERED: TIMOXEOPD OU (06:39)
[2025-06-18] MEDS ORDERED: SITA100T6 PO (06:39)
[2025-06-18] MEDS ORDERED: DULA4.5P SQ (06:46)
[2025-06-18] MEDS ORDERED: HOME MED LIST COMPLETE! XX SCH (06:50)
[2025-06-18 07:31] LABS: BASO # 0.1 10^3/uL (0.0-0.2); BASO % 0.4 % (0.0-1.0); EOS # 0.0 10^3/uL (0.0-0.5); EOS % 0.3 % (0.0-3.0); LYMPH # 2.7 10^3/uL (1.5-5.0); LYMPH % 19.5 % (24.0-44.0); MONO # 1.4 10^3/uL (0.0-0.8); MONO % 9.8 % (2.0-8.0); NEUTROPHILS # 9.6 10^3/uL (1.5-8.5); NEUTROPHILS % 69.5 % (36.0-66.0); PLATELET COUNT, AUTOMATED 214 10^3/uL (150-450)
[2025-06-18 08:00] LABS: ALT/SGPT 20.0 U/L (7.0-40); AST/SGOT 12.0 U/L (<34); C REACTIVE PROTEIN QUANTITATIV 15.89 MG/DL (<1.0); CALCIUM LEVEL 8.2 MG/DL (8.3-10.6); CARBON DIOXIDE LEVEL 28.0 MMOL/L (20-31); CHLORIDE LEVEL 107.0 MMOL/L (98-107); CREATININE FOR GFR 1.2 MG/DL (0.55-1.30); GLOMERULAR FILTRATION RATE 48.1 (>39); POTASSIUM SERUM 4.2 MMOL/L (3.5-5.1); SODIUM LEVEL 145.0 MMOL/L (136-145)
[2025-06-18] MEDS: INSULIN LISPRO (NovoLOG) PER UNIT SC SCH (08:14)
[2025-06-19] VITALS (11 sets, daily range): BP systolic 126–137; BP diastolic 58–64; TEMP 96.8–97.9; O2SAT 93–99
[2025-06-19] MEDS: cefTRIAXone SOD 1 GM in DEXTROSE 5% (D5W) ADV/MINI-BAG 50 ML IV SCH (04:21)
[2025-06-19 07:12] LABS: PLATELET COUNT, AUTOMATED 210 10^3/uL (150-450)
[2025-06-19 07:46] LABS: CALCIUM LEVEL 7.7 MG/DL (8.3-10.6); CARBON DIOXIDE LEVEL 25.0 MMOL/L (20-31); CHLORIDE LEVEL 111.0 MMOL/L (98-107); CREATININE FOR GFR 0.98 MG/DL (0.55-1.30); GLOMERULAR FILTRATION RATE 61.3 (>39); POTASSIUM SERUM 4.2 MMOL/L (3.5-5.1); SODIUM LEVEL 147.0 MMOL/L (136-145)
[2025-06-19] MEDS ORDERED: CEFD1CAP9 PO (12:33)
== END 2025-06-19 13:40 | disposition home or self-care (01) ==
LOC: M ED 22:14 → M ED INP 22:15 → M MS4PR 06-18 12:00
PROVIDERS: ADMIT Student in an Organized Health Care Education/Training Program; ATTEND Student in an Organized Health Care Education/Training Program
DX: A41.9 Sepsis, unspecified organism (principal); N39.0 Urinary tract infection, site not specified; I10 Essential (primary) hypertension; E78.5 Hyperlipidemia, unspecified; E03.9 Hypothyroidism, unspecified; J44.9 Chronic obstructive pulmonary disease, unspecified; J45.909 Unspecified asthma, uncomplicated; J96.11 Chronic respiratory failure with hypoxia; M25.551 Pain in right hip; Z99.81 Dependence on supplemental oxygen; G47.33 Obstructive sleep apnea (adult) (pediatric); Z85.42 Personal history of malignant neoplasm of other parts of uterus; Z79.899 Other long term (current) drug therapy; Z88.5 Allergy status to narcotic agent; Z88.8 Allergy status to other drugs, medicaments and biological substances; M81.0 Age-related osteoporosis without current pathological fracture; W19.XXXA Unspecified fall, initial encounter; Y92.9 Unspecified place or not applicable
CPT/HCPCS: 36415; 71046; 73521; 80048; 80053; 81001; 82550; 82553; 83605; 84145; 84484; 85025; 85027; 86140; 87040; 87086; 87486; 87581; 87633; 87798; 93005; 96365; 96366; 97116; 97161; 99285; G0378; J0696; J1815

== ENCOUNTER → 2025-06-30 | Outpatient (REF) | payer MEDICARE ==
[~2025-06-30] MED LIST changes: +CEFD1CAP9 PO; +DULA4.5P SQ; +JARD1TAB3 PO; +SITA100T6 PO; +SITA50TAB PO; +TIMO5DRO4 OU; +TIMOXEOPD OU; +TRUL0.5I SC
== END ==
LOC: M SFHCPLAZ 12:45
PROVIDERS: ATTEND Nurse Practitioner Family
DX: R35.0 Frequency of micturition (principal)

== ENCOUNTER → 2025-08-22 | Outpatient (CLI) | payer MEDICARE ==
[2025-08-22 12:00] LABS: BASO # 0.1 10^3/uL (0.0-0.2); BASO % 0.7 % (0.0-1.0); EOS # 0.6 10^3/uL (0.0-0.5); EOS % 7.4 % (0.0-3.0); LYMPH # 2.8 10^3/uL (1.5-5.0); LYMPH % 33.0 % (24.0-44.0); MONO # 0.6 10^3/uL (0.0-0.8); MONO % 7.5 % (2.0-8.0); NEUTROPHILS # 4.3 10^3/uL (1.5-8.5); NEUTROPHILS % 51.2 % (36.0-66.0); PLATELET COUNT, AUTOMATED 229 10^3/uL (150-450)
[2025-08-22 12:01] LABS: ESTIMATED AVERAGE GLUCOSE 137.0 MG/DL (60-110)
[2025-08-22 12:26] LABS: MALB URINE SIEMENS < 3.0 MG/L
[2025-08-22 12:31] LABS: CREATININE, URINE 57.4 MG/DL
[2025-08-22 12:38] LABS: ALT/SGPT 20.0 U/L (7.0-40); AST/SGOT 13.0 U/L (<34); CALCIUM LEVEL 9.1 MG/DL (8.3-10.6); CARBON DIOXIDE LEVEL 33.0 MMOL/L (20-31); CHLORIDE LEVEL 105.0 MMOL/L (98-107); CHOLESTEROL LEVEL 120.0 MG/DL (<200); CHOLESTEROL RISK RATIO 3.43 (<5); CREATININE FOR GFR 1.0 MG/DL (0.55-1.30); FREE T4 1.59 NG/DL (0.89-1.76); GLOMERULAR FILTRATION RATE 59.9 (>39); LDL CHOLESTEROL 55.7 MG/DL (<100); MAGNESIUM LEVEL 1.9 MG/DL (1.8-2.4); NON-HDL-C 85.1 MG/DL; POTASSIUM SERUM 4.5 MMOL/L (3.5-5.1); SODIUM LEVEL 145.0 MMOL/L (136-145); TRIGLYCERIDES LEVEL 147.0 MG/DL (<150); VITAMIN B12 LEVEL 409.0 PG/ML (211-911)
== END ==
LOC: M PLALAB 07:45
PROVIDERS: ATTEND Nurse Practitioner Family
DX: E11.9 Type 2 diabetes mellitus without complications (principal); E03.9 Hypothyroidism, unspecified; E55.9 Vitamin D deficiency, unspecified; E78.5 Hyperlipidemia, unspecified